=== PATIENT | female | born 1940 | race Caucasian/White ===

== ENCOUNTER 2017-03-10 10:15 | Day surgery (SDC) | payer MEDICARE ==
[2017-03-09 14:09] VITALS: BMI 26.6
[2017-03-10 12:53] LABS: Hematocrit 40.7 % (36.0-47.0); Mean Platelet Volume 7.1 fL (7.4-10.4); Red Blood Cell (RBC) Count 4.12 mill/uL (4.20-5.40); White Blood Cell (WBC) Count 5.3 thou/uL (4.8-10.8)
[2017-03-10 13:00] LABS: PTT 26.5 SEC (22.9-36.1); Prothrombin Time 13.9 SEC (12.0-14.7)
[2017-03-10 13:04] LABS: Anion Gap 14 mmol/L (10-20); BUN (Urea Nitrogen) 15 mg/dL (9.8-20.1); Calc. Creatinine Clearance 72 mL/min (70-130); Calcium 9.7 mg/dL (7.8-10.44); Carbon Dioxide 26 mmol/L (23-31); Chloride 103 mmol/L (98-107); Estimated GFR-MDRD 70
[2017-03-10] MEDS ORDERED: Sodium Chloride 0.9% 10 ML ONE (13:12)
[2017-03-10] MEDS ORDERED: Thrombin 5000 UNITS/5 ML VIAL ONE ×2 (13:12→15:30)
[2017-03-10] MEDS ORDERED: Bacitracin Zinc Ointment 30 gm TUBE ONE (13:12)
[2017-03-10] MEDS ORDERED: Levofloxacin 500 mg/D5W 100 ml Premix Bag ONE (13:16)
[2017-03-10] MEDS ORDERED: Clindamycin/D5W 900 mg/50 ml Premix Bag ONE (13:16)
[2017-03-10] MEDS ORDERED: Albumin 5% 500 ML ONE (13:21)
[2017-03-10] MEDS ORDERED: Vecuronium 10 MG VIAL ONE ×2 (13:21→13:45)
[2017-03-10] MEDS ORDERED: Phenylephrine 10 MG/NS 250 ML 250 ML ONE (13:21)
[2017-03-10] MEDS ORDERED: Fentanyl 100 MCG/2 ML VIAL ONE ×4 (13:33→16:54)
[2017-03-10] MEDS ORDERED: Ketorolac Tromethamine 30 MG/ML VIAL ONE (13:45)
[2017-03-10] MEDS ORDERED: Glycopyrrolate 0.2 MG/ML 5 ML SYRINGE ONE (13:45)
[2017-03-10] MEDS ORDERED: Ondansetron HCl/PF 4 MG/2 ML Vial ONE (13:45)
[2017-03-10] MEDS ORDERED: Lidocaine 1% PF 5 ML VIAL ONE (13:45)
[2017-03-10] MEDS ORDERED: Propofol 200 MG/20 ML VIAL ONE (13:45)
[2017-03-10] MEDS ORDERED: Dexamethasone 20 MG/5 ML VIAL ONE (13:45)
[2017-03-10] MEDS ORDERED: HYDROmorphone 2 MG/ML VIAL SLOW IVP PRN (15:53)
[2017-03-10] MEDS ORDERED: Ondansetron HCl/PF 4 MG/2 ML Vial IVP PRN (15:53)
[2017-03-10] MEDS ORDERED: Promethazine HCl 25 MG/ML VIAL SLOW IVP PRN (15:53)
[2017-03-10] MEDS ORDERED: traMADol HCl 50 MG TAB PO PRN (16:11)
[2017-03-10] MEDS ORDERED: Promethazine HCl 25 MG/ML VIAL IM PRN (16:11)
[2017-03-10] MEDS ORDERED: Fleet Enema 133 ML BOT PR PRN (16:11)
[2017-03-10] MEDS ORDERED: Mag-Al 1200 mg/1200 mg/30 ML UDCUP PO PRN (16:11)
[2017-03-10] MEDS ORDERED: Acetaminophen/Codeine 30-300mg Tablet PO PRN (16:11)
[2017-03-10] MEDS ORDERED: Bisacodyl 10 MG SUPP PR PRN (16:11)
[2017-03-10] MEDS ORDERED: Morphine PF 1 MG/ML SYR IVP PRN (16:11)
[2017-03-10] MEDS ORDERED: Milk Of Magnesia 30 ML UDCUP PO PRN (16:11)
[2017-03-10] MEDS ORDERED: Acetaminophen 325 MG TAB PO PRN (16:11)
[2017-03-10] MEDS ORDERED: chlordiazePOXIDE/Clidinium Bromide Capsule PO PRN (16:13)
[2017-03-10] MEDS ORDERED: Promethazine HCl 25 MG/ML VIAL ONE (16:58)
[2017-03-10] MEDS ORDERED: Non-Formulary Item 1 EACH (Sitagliptin Phos/Metformin Hcl [Janumet] 1 TABLET) PO SCH (17:00)
[2017-03-10] MEDS: metFORMIN 500 MG TAB PO SCH (20:34)
[2017-03-10] MEDS: Alogliptin 25 MG TAB PO SCH (20:34)
[2017-03-10] MEDS: HYDROcodone/Acetaminophen 7.5/325 mg Tablet PO PRN (20:44)
[2017-03-10] MEDS: tiZANidine HCl 4 MG TAB PO PRN (20:44)
[2017-03-10] MEDS: Gabapentin 300 MG CAP PO SCH (20:44)
[2017-03-10] MEDS: Sodium Chloride 0.9% 1,000 ML IV SCH (20:44)
[2017-03-10] MEDS: Clindamycin/D5W 900 MG in Premix Bag 1 BAG IVPB SCH (20:45)
[2017-03-10] MEDS ORDERED: PITAVASTATIN CALCIUM PO SCH (21:00)
[2017-03-10] MEDS ORDERED: Melatonin 3 MG TAB PO SCH (21:00)
[2017-03-10] MEDS ORDERED: (Icosapent Ethyl [Vascepa] 1 GM) PO SCH (21:00)
[2017-03-10] MEDS ORDERED: (Turmeric Root Extract [Turmeric] 500 MG) PO SCH (21:00)
[2017-03-10] MEDS ORDERED: Folic Acid 1 MG TAB PO SCH (21:00)
[2017-03-10] MEDS ORDERED: Ascorbic Acid 500 mg Chewable Tablet PO SCH (21:00)
[2017-03-10] MEDS ORDERED: Bisoprolol Fumarate 5 MG TAB PO SCH (21:00)
[2017-03-11] MEDS: tiZANidine HCl 4 MG TAB PO PRN (03:40)
[2017-03-11] MEDS: HYDROcodone/Acetaminophen 7.5/325 mg Tablet PO PRN ×3 (03:41→13:17)
[2017-03-11] MEDS: Clindamycin/D5W 900 MG in Premix Bag 1 BAG IVPB SCH (05:39)
[2017-03-11] MEDS: Sodium Chloride 0.9% 1,000 ML IV SCH (05:42)
[2017-03-11] MEDS: metFORMIN 500 MG TAB PO SCH (08:34)
[2017-03-11] MEDS: Alogliptin 25 MG TAB PO SCH (08:35)
[2017-03-11] MEDS: Gabapentin 300 MG CAP PO SCH (08:35)
[2017-03-11] MEDS ORDERED: Calcium Carbonate 600 MG TAB PO SCH (09:00)
[2017-03-11] MEDS ORDERED: Ezetimibe 10 MG TAB PO SCH (09:00)
[2017-03-11] MEDS ORDERED: CRANBERRY EXTRACT 200 MG PO SCH (09:00)
[2017-03-11] MEDS ORDERED: Ubidecarenone 50 MG CAP PO SCH (09:00)
[2017-03-11] MEDS ORDERED: Lactinex Tablet PO SCH (09:00)
[2017-03-11] MEDS ORDERED: Losartan Potassium 25 MG TAB PO SCH (09:00)
[2017-03-11] MEDS ORDERED: (Biotin [Biotin] 5,000 MCG) PO SCH (09:00)
[2017-03-11] MEDS ORDERED: Magnesium Oxide 250 MG TAB PO SCH (09:00)
[2017-03-11] MEDS ORDERED: Cyanocobalamin (Vitamin B-12) 1,000 MCG TAB PO SCH (09:00)
[2017-03-11 12:45] VITALS: BP 110/66; TEMP 98.3
--- NOTE | 2017-03-11 19:12 | PRG ---
DATE OF SERVICE: 03/11/2017 Ms. Wilder is doing well postoperative lumbar decompression. She states her leg pain has resolved, which she had before surgery, this is excellent news. As expected, she has pain in the perioperativ e region. We went over intraoperative and postoperative issues, her exam demonstrates good strength and I let her know that we will plan to dismiss her today with followup already arranged.
--- NOTE | 2017-03-14 08:05 | OP ---
DATE OF PROCEDURE: 03/10/2017 SURGEON: Francisco Toledo M.D. OVERHEAD CRANE TECHNICIAN: Aníbal Omalley PA-C. PREPROCEDURE DIAGNOSES: Low back and leg pain with lumbar stenosis. POSTPROCEDURE DIAGNOSES: Low back and leg pain with lumbar stenosis. PROCEDURE: L2-L3, L3-L4 laminectomies, partial facetectomies, foraminotomies over the L2, L3, L4 ner ve roots. DESCRIPTION OF PROCEDURE: After informed consent was obtained from the patient, the patient brought to OR. Proper patient pause and identification was carried out. The wound was drawn out over the do rsal spines of L2, L3 and L4. This region was sterilely cleansed, prepared, and draped. Proper lazarus ent pause and identification was carried out. The wound was then opened with a combination of sharp, monopolar and blunt dissection. The L2, L3, and L4 dorsal spines and lamina were exposed. Localiza tion film confirmed our area of interest. We then performed L2, L3, and L4 laminectomies, partial fa cetectomies, foraminotomies over the nerve roots. We satisfied with our decompression. Copious irri gation occurred throughout. Hemostasis was maximized. The wound was then closed in anatomic layers following the sprinkling of vancomycin powder. The patient then emerged from anesthesia.
== END 2017-03-11 14:42 | disposition home or self-care (01) ==
LOC: SDC 10:15 → SURG A 17:27 → SDC 03-11 14:42
PROVIDERS: ATTEND Surgery
PROC: 00NY0ZZ Release Lumbar Spinal Cord, Open Approach (ICD-10-PCS; principal; 2017-03-10)
DX: M48.061 Spinal stenosis, lumbar region without neurogenic claudication (principal); M54.16 Radiculopathy, lumbar region; Z91.041 Radiographic dye allergy status; Z91.013 Allergy to seafood; Z88.8 Allergy status to other drugs, medicaments and biological substances; Z88.0 Allergy status to penicillin
CPT/HCPCS: 63047; 63048 ×2; 76001; 80048; 85027; 85610; 85730; 93005; 96374; P9045; 36415; 93010; A4216; J1100; J1885; J1956; J2001; J2405; J2550; J2704; J3010; J3370; J3490

== ENCOUNTER 2017-07-20 12:43 | Inpatient (IN) | payer MEDICARE ==
[2017-07-20] MEDS ORDERED: Esmolol 2,500 MG/250 ML 250 ML IVPB SCH (13:30)
[2017-07-20 15:24] LABS: Troponin I Less than 0.010 ng/mL (< 0.028)
[2017-07-20 16:42] VITALS: BMI 23.1
[2017-07-20] MEDS ORDERED: Acetaminophen 325 MG TAB PO PRN (16:44)
[2017-07-20] MEDS ORDERED: Ondansetron ODT 4 MG TAB SL PRN ×2 (16:44→17:02)
[2017-07-20] MEDS ORDERED: Ondansetron HCl/PF 4 MG/2 ML Vial IVP PRN ×2 (16:44→17:02)
--- NOTE | 2017-07-20 17:12 | PDOC.FPRHP ---
- History of Present Illness Chief Complaint: dizziness, SOB History of Present Illness: 77 yo F with PMH HTN, HLD, and one episode A. fib 10 yrs ago sent to ED in [place] from PCP office due to A. fib with RVR by EKG. C/o SOB, dizziness, and mild nausea for 3-4 days. Also c/o one episode of diarrhea last night that has resolved. HR 140s at PCP office and confirmed A. fib on EKG. In outside ED, given IV metoprolol 2.5 mg x6 and IV diltiazem 10 mg x1 which did not affect HR. Transferred to [facility]. Pt's epitaxial reactor operator is Dr. Cruz. Last saw in December. Denies other symptoms. Pt has hx of one episode of atrial fibrillation 10 yrs ago that self-resolved and has not recurred to pt's knowledge. PCP: GRETCH[facility] - Deepika Elkins Code status: Full ED Course: In outside ED, given IV metoprolol 2.5 mg x6 and IV diltiazem 10 mg x1, NS 1.5 L , ASA, lovenox 80 mg (at 1100) - Allergies/Adverse Reactions Allergies Allergy/AdvReac Type Severity Reaction Status Date / Time indomethacin [From Indocin] Allergy Verified 03/09/17 14:10 Iodine and Iodide Containing Allergy Verified 03/09/17 14:10 Produc Penicillins Allergy Verified 03/09/17 14:10 shellfish derived Allergy Verified 03/09/17 14:10 [id number]-Afa Reductase Allergy Verified 03/09/17 14:10 Inhibitor - Home Medications Medication Instructions Recorded Confirmed Type Ascorbate Calcium [Vitamin C] 500 mg PO QPM 03/09/17 07/20/17 History Aspirin [Ecotrin] 81 mg PO DAILY 03/09/17 07/20/17 History Biotin 5,000 mcg PO QAM 03/09/17 07/20/17 History Bisoprolol Fumarate [Bisoprolol 5 mg PO QPM 03/09/17 07/20/17 History Fumarate] Calcium Carbonate [Calcium] 600 mg PO QAM 03/09/17 07/20/17 History Cholecalciferol (Vitamin D3) 5,000 unit PO QAM 03/09/17 07/20/17 History [Vitamin D3] Cranberry Fruit Extract [Ellura] 200 mg PO QAM 03/09/17 07/20/17 History Cyanocobalamin (Vitamin B-12) 2,500 mcg SQ Q14D 03/09/17 07/20/17 History [Vitamin B12] Dexlansoprazole [Dexilant] 60 mg PO QAM 03/09/17 07/20/17 History Ezetimibe [Ezetimibe] 10 mg PO QAM 03/09/17 07/20/17 History Folic Acid 0.4 mg PO QPM 03/09/17 07/20/17 History Gabapentin [Gabapentin] 600 mg PO BID 03/09/17 07/20/17 History Icosapent Ethyl [Vascepa] 1 gm PO BID 03/09/17 07/20/17 History Lactobacillus Acidophilus 1 cap PO QAM 03/09/17 07/20/17 History [Acidophilus] Losartan Potassium 100 mg PO QAM 03/09/17 07/20/17 History Magnesium Oxide [Magnesium] 500 mg PO QAM 03/09/17 07/20/17 History Melatonin 10 mg PO HS 03/09/17 07/20/17 History Meloxicam [Meloxicam] 15 mg PO QAM 03/09/17 07/20/17 History Mirabegron [Myrbetriq] 50 mg PO QAM 03/09/17 07/20/17 History Turmeric Root Extract [Turmeric] 500 mg PO QPM 03/09/17 07/20/17 History Ubidecarenone/Vitamin E Mixed 1 each PO QAM 03/09/17 07/20/17 History [Fiq45-Pao E 100 mg-10 Unit Sfg] sitaGLIPtin Phos/metFORMIN HCl 1 tablet PO BID-WM 03/09/17 07/20/17 History [Janumet] traMADol HCl [Tramadol HCl] 1 - 2 tab PO Q8H PRN 03/09/17 07/20/17 History - History PMHx: HTN, DM2, HLD, A fib x1 episode (10 yrs ago), OA, diverticulosis PSHx: tonsillectomy, appendectomy, hysterectomy, bilateral oophorectomy, R hip replacement '07, laminectomy L2-L4 (Feb) FHx: noncontributory Social: Denies tobacco use. Drinks 1 glass wine nightly. No illicit drug use. - Review of Systems General: denies: fever/chills, weight/appetite/sleep changes Eyes: denies: eye pain, vision changes ENT: denies: nasal congestion, rhinorrhea Respiratory: reports: shortness of breath. denies: cough, congestion Cardiovascular: reports: palpitation. denies: chest pain, edema Gastrointestinal: reports: nausea, diarrhea. denies: vomiting, constipation Genitourinary: denies: incontinence, dysuria Skin: denies: rashes, lesions Musculoskeletal: denies: pain, tenderness Neurological: denies: numbness, syncope Psychological: denies: anxiety, depression - Vital signs BP: 131/88 HR: 128 RR: 16 Tmax: 98.4 Pox: 97% on 2L Wt: 69kg - Physical Exam Constitutional: NAD, awake, alert and oriented HEENT: PERRLA, EOMI, MMM, oropharynx clear, other (nasal cannula in place) Neck: supple, FROM, no bruits Heart: no murmurs/rubs/gallops, pulses present, other (irregularly irregular rhythm, trace pedal edema) Lungs: CTAB, no respiratory distress, good air movement Abdomen: soft, non-tender, bowel sounds present, no masses/distention Musculoskeletal: normal structure, normal tone, ROM grossly normal Neurological: no focal deficit, CN II-XII intact Skin: no rash/lesions, good turgor Psychiatric: normal mood and affect, good judgment and insight FMR H&P: Results - Labs Lab results: Collected 07/20 in [place]: CBC: WBC 7.6, Hgb 12.9, Hct 38.3, Plt 271 CMP Na 138, K 5.0, Cl 103, CO2 22, BUN 26, Cr 1.28, Ca 9.8, Tot Pr 7.3, Alb 4.4 , AST 15, ALT 16, Alk phos 66, T bili 0.4 BNP 700 Trop <0.01 x2 Mg 2.2 INR 1.1 TSH 2.69 - EKG Interpretation EKG: atrial fibrillation with RVR, rate 132 - Radiology Interpretation Chest x-ray Status: report reviewed by me Additional comment: Done in [place]; no acute findings. FMR H&P: A/P - Problem List (1) Atrial fibrillation with rapid ventricular response Current Visit: Yes Status: Acute Code(s): I48.91 - UNSPECIFIED ATRIAL FIBRILLATION Assessment and Plan: Esmolol drip started in ED and titrated to 200 mcg/kg/hr. No bolus dose given. Did not respond to IV metoprolol in outside ED. Admitting to CCU for monitoring and titration. Dr. Olson of [facility] consulted. NPO at midnight per cards. Hold oral bisoprolol. If further rate control needed, likely add amiodarone. Pt is less symptomatic currently but still in RVR. Started lovenox anticoagulation. Can discuss further with [facility] about predatory animal exterminator goals, cardiac evaluation, or cardioversion. Appreciate their assistance. Dr. Cruz is her primary epitaxial reactor operator. (2) Hypertension Current Visit: Yes Status: Acute Code(s): I10 - ESSENTIAL (PRIMARY) HYPERTENSION Qualifiers: Hypertension type: essential hypertension Qualified Code(s): I10 - Essential (primary) hypertension Assessment and Plan: Continue losartan. Likely to add other agents that may cause hypotension due to new-onset A fib. (3) Diabetes type 2, controlled Current Visit: Yes Status: Acute Code(s): E11.9 - TYPE 2 DIABETES MELLITUS WITHOUT COMPLICATIONS Assessment and Plan: Hold metformin in case contrast is required. Accuchecks/SSI. Monitor. (4) Hyperlipidemia Current Visit: Yes Status: Acute Code(s): E78.5 - HYPERLIPIDEMIA, UNSPECIFIED Assessment and Plan: Home meds. Unable to tolerate statins. (5) Osteoarthritis Current Visit: Yes Status: Acute Code(s): M19.90 - UNSPECIFIED OSTEOARTHRITIS, UNSPECIFIED SITE Assessment and Plan: Home meds. Hold NSAIDs during current cardiac eval - Plan Disposition/LOS: Admit to CCU for expected 2 day stay. Attending Addendum - Attending Addendum Date/Time: 07/20/172115 I personally evaluated the patient and discussed the management with Dr. Adam. I agree with and repeated the History, Examination, Assessment and Plan documented above with any addition or exceptions noted below. Rate control, anticoagulation, cardiology consultation.
[2017-07-20] MEDS: Esmolol 2,500 MG/250 ML 250 ML IVPB SCH ×3 (17:38→22:30)
[2017-07-20 18:11] LABS: Troponin I Less than 0.010 ng/mL (< 0.028)
[2017-07-20] MEDS ORDERED: Dextrose 5% in Water 1,000 ML IV PRN (18:51)
[2017-07-20] MEDS ORDERED: HumaLOG 300 UNITS/3 ML VIAL SC PRN ×2 (18:51)
[2017-07-20] MEDS ORDERED: Dextrose 50% Abboject 50 ML SYRINGE SLOW IVP PRN (18:51)
[2017-07-20] MEDS ORDERED: Melatonin 3 MG TAB PO PRN (18:58)
[2017-07-20] MEDS: Gabapentin 300 MG CAP PO SCH (20:46)
[2017-07-20] MEDS: Enoxaparin Sodium 80 MG/0.8 ML SYRINGE SC SCH (20:47)
[2017-07-20] MEDS ORDERED: FLU VACC TS2017-18 (>65YR) 0.5 ML SYRINGE IM ONE (21:00)
--- NOTE | 2017-07-20 23:30 | CON ---
DATE OF CONSULTATION: 07/20/2017 REASON FOR CONSULTATION: Atrial fibrillation with a rapid rate. PRIMARY MECHANICAL ENGINEERING INTERN: Naren Cruz M.D. HISTORY OF PRESENT ILLNESS: Ms. Wilder is a very pleasant 77-year-old woman. The patient states s he had atrial fibrillation about 10 years ago. She was sent over here, but by the time she got here, she is in sinus rhythm. The patient has been made seen and treated for hypertension and history of atrial fibrillation that is why Dr. Cruz has been seeing her, but the patient has done well. She also has hypercholesterolemia. She has done very well up until today. She went to see her doctor a nd she complained of some dizziness. She was found to be in atrial fibrillation with a rapid rate an d sent to the emergency room. MEDICATIONS: 1. Tramadol. 2. Losartan. 3. Folic acid. 4. Zetia. 5. Bisoprolol 5 mg a day. 6. Aspirin. ALLERGIES: INDOMETHACIN, IODINE, and IODINE-CONTAINING PRODUCTS and PENICILLIN. REVIEW OF SYSTEMS: Constitutional: No significant weight gain or loss. Vision: No changes. Heari ng: No changes. Pulmonary: No cough or wheezing. Gastrointestinal: No nausea, vomiting, diarrhea . Skin: No rashes. Neurologic: No unilateral weakness or numbness. Psychiatric: No unusual depr ession or anxiety. Hematologic: No unusual bruising. Genitourinary: No burning with urination. PHYSICAL EXAMINATION: GENERAL: This is a pleasant woman, looks younger than her chronologic age. VITAL SIGNS: Blood pressure 111/74; pulse 120s, and irregular, it is atrial fibrillation. HEENT: Sclerae nonicteric. Mouth mucous membranes moist. NECK: Supple, no lymphadenopathy. LUNGS: Clear. CARDIAC: Irregularly irregular. She is tachycardic. I do not hear a murmur, rub, or gallop. ABDOMEN: Soft and nontender. EXTREMITIES: No clubbing or cyanosis. There is no edema. SKIN: Warm and dry. LABORATORY AND X-RAY FINDINGS: EKG reveals atrial fibrillation with a rapid rate. Troponin level wa s less than 0.010. ASSESSMENT: 1. Atrial fibrillation with a rapid rate. She is on esmolol with only fair improvement in her heart rate. 2. She is allergic to IODINE. 3. Hypercholesterolemia. 4. Hypertension. PLAN: 1. Continue esmolol. 2. Add oral Cardizem. Intravenous Cardizem is not available at the present time due to shortage. 3. We would recommend transesophageal echo and cardioversion tomorrow with Dr. Cruz. Keep her n .p.o. after midnight.
[2017-07-21] MEDS: Esmolol 2,500 MG/250 ML 250 ML IVPB SCH ×5 (00:58→11:32)
--- NOTE | 2017-07-21 04:06 | CON ---
DATE OF CONSULTATION: 07/20/2017 HISTORY OF PRESENT ILLNESS: Ms. Wilder is a pleasant 77-year-old female. She has had atrial fibri llation in the past and has been followed by Dr. Cruz in the past, I believe. Apparently, she has been feeling lightheaded for several days. She was seen in the emergency room in [facility] after Dr. Guillaume noted that she was in atrial fib in the office. She subsequently has been transferred here. She was admitted to the ICU on an esmolol drip. There is shortage nationall [place] Cardizem, so this was a drug that was chosen. She denies any shortness of breath or chest pain. PAST MEDICAL HISTORY: This obtained from the patient and all records have been reviewed in 02/2017, she had an L2-L3, L3-L4 laminectomy, partial facetectomies, foraminotomies over L2, L3, and L4 nerve roots. She apparently did well with this. PAST MEDICAL HISTORY: Also remarkable for; 1. Hypertension. 2. Diabetes. 3. Diverticulosis. 4. Degenerative arthritis. 5. History of tonsillectomy. 6. History of an appendectomy. 7. Status post hysterectomy and oophorectomy. 8. History of a hip replacement in 2006. FAMILY HISTORY: Negative for lung disease in early age. SOCIAL HISTORY: She does not smoke. She drinks one glass of wine in the evening. She does not use drugs. MEDICATIONS: Have been reviewed. She is on multiple over the counter medicines and also on Dexilant , ezetimibe, gabapentin, Vascepa, losartan, loxapine, Myrbetriq, and tramadol. REVIEW OF SYSTEMS: Ten-point review of systems otherwise negative. PHYSICAL EXAMINATION: GENERAL: Atrial fibrillation, rate was 120 when she arrived in the unit. VITAL SIGNS: Her blood pressure was in the 90s to low 100s. She is afebrile. Respiratory rates in the teens. Oximetry 97%. HEENT: Pupils are equal. Sclerae is anicteric. NECK: Supple. No lymphadenopathy. LUNGS: Clear. HEART: Regular rhythm. S1 and S2 are normal. I do not hear a gallop. ABDOMEN: Soft and nontender. EXTREMITIES: Without clubbing, cyanosis, or edema. NEUROLOGIC: Nonfocal. LABORATORY DATA: White count is 5.5, hemoglobin 12.2, platelets 257. Sodium 139, creatinine 4.6, ch loride 103, bicarb 26, BUN 15, creatinine 0.8, glucose 119. IMPRESSION: Atrial fibrillation with rapid ventricular response, improving on current therapy. Card iology will be consulted. From a pulmonary standpoint, she appears stable. She has a good night. S he can be transferred to a telemetry unit in my opinion. I have discussed the above with Cardiology and call the Cardiology, we will see her in consultation. This is a 50-minutes consult greater than 50% of the time was spent on the unit coordinating care.
[2017-07-21 05:55] LABS: #Basophils 0.1 thou/uL (0.0-0.2); #Eosinphils 0.1 thou/uL (0.0-0.7); #Lymphocytes 2.2 thou/uL (1.20-3.40); #Monocytes 0.6 thou/uL (0.11-0.59); #Neutrophils 2.4 thou/uL (1.40-6.50); %Basophils 1.3 % (0.0-1.0); %Eosinophils 1.8 % (0.0-10.0); %Lymphocytes 40.9 % (21.0-51.0); %Monocytes 10.4 % (0.0-10.0); %Neutrophils 45.6 % (42.0-75.0); Hemoglobin 11.6 g/dL (12.0-16.0); Mean Corpuscular HGB CONC 33.4 g/dL (32.0-36.0); Mean Corpuscular Hemoglobin 31.7 pg (27.0-31.0); Mean Corpuscular Volume 94.8 fl (81.0-99.0); Mean Platelet Volume 7.1 fL (7.4-10.4); Platelet Count 209 thou/uL (130-400); RBC Distribution Width 13.8 % (11.5-14.5); Red Blood Cell (RBC) Count 3.66 mill/uL (4.20-5.40); White Blood Cell (WBC) Count 5.3 thou/uL (4.8-10.8)
[2017-07-21 06:18] LABS: ALT (SGPT) 25 U/L (8-55); AST (SGOT) 28 U/L (5-34); Albumin 3.8 g/dL (3.4-4.8); Alkaline Phosphatase 50 U/L (40-150); Anion Gap 12 mmol/L (10-20); BUN (Urea Nitrogen) 21 mg/dL (9.8-20.1); Bilirubin, Total 0.8 mg/dL (0.2-1.2); Calc. Creatinine Clearance 48 mL/min (70-130); Calcium 9.1 mg/dL (7.8-10.44); Carbon Dioxide 21 mmol/L (23-31); Chloride 104 mmol/L (98-107); Estimated GFR-MDRD 52; Globulin 2.3 g/dL (2.4-3.5); Glucose 134 mg/dL (83-110); Potassium 4.8 mmol/L (3.5-5.1); Protein, Total 6.1 g/dL (6.0-8.3); Sodium 132 mmol/L (136-145)
[2017-07-21] MEDS ORDERED: Aspirin 81 mg Enteric Coated Tablet PO SCH (09:00)
[2017-07-21] MEDS: Gabapentin 300 MG CAP PO SCH ×2 (09:07→20:05)
[2017-07-21] MEDS: Alogliptin 25 MG TAB PO SCH (09:08)
[2017-07-21] MEDS: Ezetimibe 10 MG TAB PO SCH (09:08)
[2017-07-21] MEDS: Losartan 25 MG TAB PO SCH ×2 (09:09)
[2017-07-21] MEDS: Calcium Carbonate 600 MG TAB PO SCH (09:14)
[2017-07-21] MEDS: Enoxaparin Sodium 80 MG/0.8 ML SYRINGE SC SCH (09:15)
--- NOTE | 2017-07-21 11:07 | PDOC.FM ---
- Subjective Subjective: Patient laying in bed with no complaints this morning. She denies lightheadedness, dizziness, SOB, and CP. She has been in a-fib since admission with rates in the 100-120 bpm despite being on maximum infusion of esmolol. - Objective MAR Reviewed: Yes Vital Signs & Weight: Vital Signs (12 hours) Temp 07/21/17 03:00 97.9 F Weight Weight 69.2 kg Most Recent Monitor Data Heart Rate from ECG 118 NIBP 139/80 NIBP BP-Mean 110 Respiration from ECG 15 SpO2 94 I&O: 07/20/17 07/21/17 07/22/17 06:59 06:59 06:59 Intake Total 1409 Output Total 1150 Balance 259 Result Diagrams: 07/21/17 04:35 07/21/17 04:35 <Brown Mae - Last Filed: 07/21/17 11:06> - Objective Vital Signs & Weight: Vital Signs (12 hours) Temp Pulse Ox 07/22/17 04:00 92 L 07/22/17 03:00 97.7 F 07/21/17 23:00 98.3 F Weight Weight 69.2 kg Most Recent Monitor Data Heart Rate from ECG 87 NIBP 140/64 NIBP BP-Mean 102 Respiration from ECG 16 SpO2 95 I&O: 07/21/17 07/22/17 07/23/17 06:59 06:59 06:59 Intake Total 1409 1194 Output Total 1150 1475 550 Balance 259 -281 -550 Result Diagrams: 07/22/17 04:06 07/22/17 04:06 <Kenneth Artis - Last Filed: 07/22/17 07:53> Phys Exam - Physical Examination Constitutional: NAD HEENT: moist MMs Neck: no JVD Respiratory: no wheezing, no rales irregularly irregualr rhythym Gastrointestinal: soft, non-tender Musculoskeletal: no edema Neurological: moves all 4 limbs Psychiatric: normal affect, A&O x 3 <Brown Mae - Last Filed: 07/21/17 11:06> Dx/Plan (1) Atrial fibrillation with rapid ventricular response Code(s): I48.91 - UNSPECIFIED ATRIAL FIBRILLATION Status: Acute Plan: s/p IV metoprolol x 6 and IV diltiazem x 1 at outside facility Cardiology managing -continue Esmolol gtt and PO dilt BATSHEVA scheduled for today with cardioversion to follow On therapeutic lovenox (2) Diabetes type 2, controlled Code(s): E11.9 - TYPE 2 DIABETES MELLITUS WITHOUT COMPLICATIONS Status: Chronic Plan: Accuchecks SSI (3) Hyperlipidemia Code(s): E78.5 - HYPERLIPIDEMIA, UNSPECIFIED Status: Chronic Plan: allergic to statins continue home meds (4) Hypertension Code(s): I10 - ESSENTIAL (PRIMARY) HYPERTENSION Status: Acute QualifierTitle: Hypertension type: essential hypertension Qualified Code( s): I10 - Essential (primary) hypertension Plan: Continue home losartan (5) Osteoarthritis Code(s): M19.90 - UNSPECIFIED OSTEOARTHRITIS, UNSPECIFIED SITE Status: Acute Plan: Continue home meds - Plan Plan: -await results of BATSHEVA with likely cardioversion to follow <Brown Mae - Last Filed: 07/21/17 11:06> Attending Addendum - Attending Addendum Date/Time: 07/22/17 0752 I personally evaluated the patient and discussed the management with Dr. Mae on 07/21/17. I agree with the History, Examination, Assessment and Plan documented above with any addition or exceptions noted below. <Kenneth Artis - Last Filed: 07/22/17 07:53>
[2017-07-21] MEDS ORDERED: Ketamine 50 MG/ML VIAL ONE (12:04)
--- NOTE | 2017-07-21 15:42 | ECHO ---
TRANSESOPHAGEAL ECHOCARDIOGRAM: DATE OF PROCEDURE: 07/21/17 INDICATION: This is a 77-year-old woman with paroxysmal atrial fibrillation. DESCRIPTION OF PROCEDURE: The patient was taken to the PACU. The patient was sedated by anesthesiology. A transesophageal probe was placed in the distal esophagus and stomach. Echocardiographic images were obtained. The transesophageal probe was removed. FINDINGS: 1. Left atrial enlargement. 2. Left ventricle does not appear to be dilated. 3. Mild mitral regurgitation. 4. Mild tricuspid regurgitation. 5. No thrombus in left atrial appendage. 6. Atherosclerotic debris in the descending aorta. IMPRESSION: No formed thrombus in left atrial appendage.
--- NOTE | 2017-07-21 18:31 | OP ---
PROCEDURE PERFORMED: Electrocardiogram. INDICATION: This is a 77-year-old woman with paroxysmal atrial fibrillation. DESCRIPTION OF PROCEDURE: The patient in the ICU was sedated by Anesthesiology. The patient was lance cked with 120 joules of synchronized electricity. The patient converted to normal sinus rhythm. IMPRESSION: Successful electrocardioversion.
--- NOTE | 2017-07-21 18:42 | PRG ---
DATE OF SERVICE: 07/21/2017 SUBJECTIVE: Ms. Wilder says she is feeling fine. She still has atrial fibrillation with a rate of around 110-120. The plan for today was to take her down to a transesophageal echo and hopefully cardiovert her. OBJECTIVE: VITAL SIGNS: She is afebrile, heart rates in the 60s and blood pressure 119/64. LUNGS: Clear. HEART: Irregular. ABDOMEN: Soft. LABORATORY DATA: White count was 5.3, hemoglobin 11.6, and platelets 209,000. Sodium 132, potassium 4.8, chloride 104, bicarbonate 21, BUN 21, creatinine 1.03. IMPRESSION AND PLAN: Rapid atrial fibrillation recurrence. She has been out of atrial fibrillation what she tells me for 10 years. Hopefully, she will successfully be cardioverted.
[2017-07-21] MEDS: Apixaban 5 MG TAB PO SCH (20:05)
[2017-07-21] MEDS: Flecainide 50 MG TAB PO SCH ×2 (20:05)
[2017-07-22 04:13] LABS: #Basophils 0.1 thou/uL (0.0-0.2); #Eosinphils 0.1 thou/uL (0.0-0.7); #Lymphocytes 1.9 thou/uL (1.20-3.40); #Monocytes 0.8 thou/uL (0.11-0.59); #Neutrophils 6.9 thou/uL (1.40-6.50); %Basophils 0.7 % (0.0-1.0); %Eosinophils 0.7 % (0.0-10.0); %Lymphocytes 19.7 % (21.0-51.0); %Monocytes 8.1 % (0.0-10.0); %Neutrophils 70.9 % (42.0-75.0); Hemoglobin 11.6 g/dL (12.0-16.0); Mean Corpuscular HGB CONC 33.7 g/dL (32.0-36.0); Mean Corpuscular Hemoglobin 31.4 pg (27.0-31.0); Mean Corpuscular Volume 93.3 fl (81.0-99.0); Mean Platelet Volume 6.2 fL (7.4-10.4); Platelet Count 212 thou/uL (130-400); RBC Distribution Width 13.6 % (11.5-14.5); Red Blood Cell (RBC) Count 3.68 mill/uL (4.20-5.40); White Blood Cell (WBC) Count 9.8 thou/uL (4.8-10.8)
[2017-07-22 05:02] LABS: ALT (SGPT) 26 U/L (8-55); AST (SGOT) 23 U/L (5-34); Albumin 4.2 g/dL (3.4-4.8); Alkaline Phosphatase 54 U/L (40-150); Anion Gap 14 mmol/L (10-20); BUN (Urea Nitrogen) 13 mg/dL (9.8-20.1); Bilirubin, Total 0.5 mg/dL (0.2-1.2); Calc. Creatinine Clearance 49 mL/min (70-130); Calcium 9.3 mg/dL (7.8-10.44); Carbon Dioxide 24 mmol/L (23-31); Chloride 107 mmol/L (98-107); Estimated GFR-MDRD 52; Globulin 2.4 g/dL (2.4-3.5); Glucose 136 mg/dL (83-110); Potassium 3.9 mmol/L (3.5-5.1); Protein, Total 6.6 g/dL (6.0-8.3); Sodium 141 mmol/L (136-145)
[2017-07-22] MEDS: Alogliptin 25 MG TAB PO SCH (08:00)
[2017-07-22] MEDS: Losartan 25 MG TAB PO SCH ×2 (08:01)
[2017-07-22] MEDS: Ezetimibe 10 MG TAB PO SCH (08:02)
[2017-07-22] MEDS: Gabapentin 300 MG CAP PO SCH ×2 (08:02→21:20)
[2017-07-22] MEDS: Calcium Carbonate 600 MG TAB PO SCH (08:02)
[2017-07-22] MEDS: Apixaban 5 MG TAB PO SCH ×2 (08:03→21:21)
[2017-07-22] MEDS: Flecainide 50 MG TAB PO SCH ×4 (08:04→21:20)
[2017-07-22] MEDS ORDERED: Bisoprolol Fumarate 5 MG TAB PO SCH (09:00)
--- NOTE | 2017-07-22 10:39 | PRG ---
DATE OF SERVICE: 07/22/2017 SERVICE: Pulmonary Medicine INTERVAL HISTORY: The patient is doing absolutely fantastic from a cardiovascular and respiratory st andpoint. She denies any current fevers, chills, nausea, vomiting. She is in normal sinus rhythm. She has no dizziness, shortness of breath or chest pain. PHYSICAL EXAMINATION: VITAL SIGNS: Afebrile, pulse 90, blood pressure 133/69, respirations 18, saturation 99% on room air. GENERAL: The patient is awake, alert, no apparent distress. LUNGS: Excellent air entry with no prolonged expiratory phase, wheezing, rhonchi or crackles. HEART: Normal rate, regular. ABDOMEN: Soft, nontender, nondistended. Bowel sounds positive. MUSCULOSKELETAL: No cyanosis or clubbing. No pitting in the bilateral lower extremities. NEUROLOGIC: Grossly nonfocal. LABORATORY DATA: WBC 9.8, hemoglobin 11.6, platelets 212,000. Basic metabolic profile and liver fun ction studies are completely unremarkable. Creatinine is stable at 1.01. ASSESSMENT: Atrial fibrillation with rapid ventricular response, status post cardioversion. PLAN: The patient has returned to normal sinus rhythm once again. She has maintained that rhythm fo r the time being. She can be transitioned to the telemetry unit, or discharged home if Cardiology i s okay with it. Either way, she has no further requirements for critical care monitoring. Pulmonary will continue to follow intermittently during this hospital stay in the floor setting.
[2017-07-22] MEDS: traMADol HCl 50 MG TAB PO PRN ×2 (10:51→21:19)
--- NOTE | 2017-07-22 10:54 | PDOC.FM ---
- Subjective Subjective: Patient doing very well since cardioversion yesterday. She has been in normal sinus rhythm with rate 60-90 bpm. No acute events per nursing. Patient denies chest pain, palpitations, n/v/d, and SOB. She is requesting to go home. - Objective MAR Reviewed: Yes Vital Signs & Weight: Vital Signs (12 hours) Temp Pulse Resp Pulse Ox 07/22/17 08:00 98.6 F 90 24 H 100 07/22/17 04:00 92 L 07/22/17 03:00 97.7 F 07/21/17 23:00 98.3 F Weight Weight 69.2 kg Most Recent Monitor Data Heart Rate from ECG 98 NIBP 133/69 NIBP BP-Mean 82 Respiration from ECG 18 SpO2 99 I&O: 07/21/17 07/22/17 07/23/17 06:59 06:59 06:59 Intake Total 1409 1194 300 Output Total 1150 1475 550 Balance 259 -281 -250 Result Diagrams: 07/22/17 04:06 07/22/17 04:06 EKG Reviewed by me: Yes (NSR) <Brown Mae - Last Filed: 07/22/17 10:52> - Objective Vital Signs & Weight: Weight Weight 69.2 kg Most Recent Monitor Data Heart Rate from ECG 76 NIBP 134/68 NIBP BP-Mean 87 Respiration from ECG 18 SpO2 99 I&O: 07/23/17 07/24/17 07/25/17 06:59 06:59 06:59 Intake Total 1170 Output Total 1350 Balance -180 Result Diagrams: 07/22/17 04:06 07/22/17 04:06 <Kenneth Artis - Last Filed: 07/24/17 19:15> Phys Exam - Physical Examination Constitutional: NAD HEENT: moist MMs Neck: no JVD Respiratory: no wheezing, no rales Cardiovascular: RRR, no significant murmur Gastrointestinal: soft, non-tender Musculoskeletal: no edema, pulses present Neurological: moves all 4 limbs Psychiatric: normal affect, A&O x 3 Skin: no rash <Brown Mae - Last Filed: 07/22/17 10:52> Dx/Plan (1) Atrial fibrillation with rapid ventricular response Code(s): I48.91 - UNSPECIFIED ATRIAL FIBRILLATION Status: Acute Plan: TTE showed no thrombus Successful cardioversion with normal rate and rhythm s/p Continue to monitor (2) Diabetes type 2, controlled Code(s): E11.9 - TYPE 2 DIABETES MELLITUS WITHOUT COMPLICATIONS Status: Chronic Plan: Accuchecks SSI (3) Hyperlipidemia Code(s): E78.5 - HYPERLIPIDEMIA, UNSPECIFIED Status: Chronic Plan: allergic to statins continue home meds (4) Hypertension Code(s): I10 - ESSENTIAL (PRIMARY) HYPERTENSION Status: Acute QualifierTitle: Hypertension type: essential hypertension Qualified Code( s): I10 - Essential (primary) hypertension Plan: Continue home losartan (5) Osteoarthritis Code(s): M19.90 - UNSPECIFIED OSTEOARTHRITIS, UNSPECIFIED SITE Status: Acute Plan: Continue home meds - Plan Plan: -continue to monitor -possible d/c today <Brown Mae C - Last Filed: 07/22/17 10:52> Attending Addendum - Attending Addendum Date/Time: 07/24/17 1915 I personally evaluated the patient and discussed the management with Dr. Mae on 07/22/17. I agree with the History, Examination, Assessment and Plan documented above with any addition or exceptions noted below. <Kenneth Artis - Last Filed: 07/24/17 19:15>
[2017-07-22] MEDS: Acetaminophen 325 MG TAB PO PRN ×2 (11:57→18:06)
[2017-07-22] MEDS: Bisoprolol Fumarate 5 MG TAB PO SCH (21:21)
[2017-07-23] MEDS: Acetaminophen 325 MG TAB PO PRN ×2 (01:01→08:31)
--- NOTE | 2017-07-23 07:17 | PDOC.FM ---
- Subjective Subjective: Patient sitting up in bed ready to go home this morning. She is c/o generalized headache but denies CP, SOB, palpitations, PUGH. - Objective MAR Reviewed: Yes Vital Signs & Weight: Vital Signs (12 hours) Temp Pulse Resp Pulse Ox 07/23/17 05:19 92 L 07/22/17 21:20 98.2 F 79 17 92 L Weight Weight 69.2 kg Most Recent Monitor Data Heart Rate from ECG 76 NIBP 134/68 NIBP BP-Mean 87 Respiration from ECG 18 SpO2 99 I&O: 07/22/17 07/23/17 07/24/17 06:59 06:59 06:59 Intake Total 1194 1170 Output Total 1475 1350 Balance -281 -180 Result Diagrams: 07/22/17 04:06 07/22/17 04:06 <Brown Mae C - Last Filed: 07/23/17 07:16> - Objective Vital Signs & Weight: Vital Signs (12 hours) Temp Pulse Resp BP Pulse Ox 07/23/17 08:00 100.5 F H 85 18 92 L 07/23/17 07:43 100.5 F H 85 18 172/75 H 92 L 07/23/17 05:19 92 L Weight Weight 69.2 kg Most Recent Monitor Data Heart Rate from ECG 76 NIBP 134/68 NIBP BP-Mean 87 Respiration from ECG 18 SpO2 99 I&O: 07/22/17 07/23/17 07/24/17 06:59 06:59 06:59 Intake Total 1194 1170 Output Total 1475 1350 Balance -281 -180 Result Diagrams: 07/22/17 04:06 07/22/17 04:06 <Francisco Christensen - Last Filed: 07/23/17 10:49> Phys Exam - Physical Examination Constitutional: NAD HEENT: moist MMs Neck: no JVD Respiratory: no wheezing, no rales Cardiovascular: RRR, no significant murmur Gastrointestinal: soft, non-tender Musculoskeletal: no edema Neurological: moves all 4 limbs Psychiatric: normal affect, A&O x 3 Skin: no rash <Brown Mae C - Last Filed: 07/23/17 07:16> Dx/Plan (1) Atrial fibrillation with rapid ventricular response Code(s): I48.91 - UNSPECIFIED ATRIAL FIBRILLATION Status: Acute Plan: TTE showed no thrombus Successful cardioversion on 07/21 with normal rate and rhythm s/p Continue to monitor rate controlled likely d/c today (2) Diabetes type 2, controlled Code(s): E11.9 - TYPE 2 DIABETES MELLITUS WITHOUT COMPLICATIONS Status: Chronic Plan: Accuchecks SSI (3) Hyperlipidemia Code(s): E78.5 - HYPERLIPIDEMIA, UNSPECIFIED Status: Chronic Plan: allergic to statins continue home meds (4) Hypertension Code(s): I10 - ESSENTIAL (PRIMARY) HYPERTENSION Status: Acute QualifierTitle: Hypertension type: essential hypertension Qualified Code( s): I10 - Essential (primary) hypertension Plan: Continue home losartan (5) Osteoarthritis Code(s): M19.90 - UNSPECIFIED OSTEOARTHRITIS, UNSPECIFIED SITE Status: Acute Plan: Continue home meds - Plan Plan: Plan: -d/c on eliquis today after 24+ hours of monitoring s/p synchronized cardioversion <Brown Mae C - Last Filed: 07/23/17 07:16> Attending Addendum - Attending Addendum Date/Time: 07/23/17 1048 I personally evaluated the patient and discussed the management with Dr. Mae. I agree with the History, Examination, Assessment and Plan documented above with any addition or exceptions noted below. Patient doing well from CV standpoint and continues in NSR s/p cardioversion. She is without CV or respiratory complaints. She does complain of a mild headache today and had temp of 100.5 this morning. Will question about infection symptoms and obtain labs as necessary. If negative and feeling well, should be well for discharge this afternoon. <Francisco Christensen - Last Filed: 07/23/17 10:49>
[2017-07-23] MEDS: Losartan 25 MG TAB PO SCH ×2 (08:30)
[2017-07-23] MEDS: Bisoprolol Fumarate 5 MG TAB PO SCH (08:30)
[2017-07-23] MEDS: Ezetimibe 10 MG TAB PO SCH (08:30)
[2017-07-23] MEDS: Flecainide 50 MG TAB PO SCH ×2 (08:31)
[2017-07-23] MEDS: Alogliptin 25 MG TAB PO SCH (08:31)
[2017-07-23] MEDS: traMADol HCl 50 MG TAB PO PRN (08:31)
[2017-07-23] MEDS: Gabapentin 300 MG CAP PO SCH (08:31)
[2017-07-23] MEDS: Apixaban 5 MG TAB PO SCH (08:31)
[2017-07-23] MEDS: Calcium Carbonate 600 MG TAB PO SCH (08:31)
[2017-07-23 11:02] VITALS: BP 134/63; TEMP 99.1
--- NOTE | 2017-07-25 12:25 | DIS-2 ---
DATE OF ADMISSION: 07/20/2017 DATE OF DISCHARGE: 07/23/2017 ADMITTING ATTENDING: Samuel Pascual MD DISCHARGE ATTENDING: Francisco Christensen MD CONSULTS: Cardiology. PROCEDURES: 1. Transesophageal echocardiogram showing left atrial enlargement, left mild mitral regurgitation, mild tricuspid regurgitation, no thrombus in the left atrial appendage. 2. Synchronized cardioversion on 07/21/2017 with 120 joules. Successful cardioversion. PRIMARY DIAGNOSIS: New-onset atrial fibrillation with rapid ventricular response. SECONDARY DIAGNOSES: 1. Hypertension. 2. Hyperlipidemia. 3. Diabetes mellitus type 2. 4. Osteoarthritis. 5. Urge incontinence. DISCHARGE MEDICATIONS: 1. Tramadol 50 mg p.o. q.8 hours p.r.n. for pain. 2. Janumet mg p.o. b.i.d. with meals. 3. CoQ10. 4. Myrbetriq 50 mg p.o. q.a.m. 5. Meloxicam 50 mg p.o. q.a.m. 6. Melatonin 10 mg p.o. at bedtime. 7. Magnesium oxide 500 mg p.o. q.a.m. 8. Losartan 100 mg p.o. q.a.m. 9. Lactobacillus acidophilus capsule. 10. Vascepa 1 gram p.o. b.i.d. 11. Gabapentin 600 mg p.o. b.i.d. 12. Folic acid 0.4 mg p.o. q.p.m. 13. Ezetimibe 10 mg p.o. q.a.m. 14. Dexilant 60 mg p.o. q.a.m. 15. Vitamin B12 of 2500 mcg subcutaneously every 14 days. 16. Vitamin D3 of 5000 units p.o. q.a.m. 17. Calcium carbonate 600 mg p.o. q.a.m. 18. Bisoprolol fumarate 5 mg p.o. q.p.m. 19. Biotin 5000 mcg p.o. q.a.m. 20. Aspirin 81 mg p.o. daily. 21. Vitamin C 500 mg p.o. q.p.m. 22. Turmeric root extract 500 mg p.o. q.p.m. 23. Eliquis 5 mg p.o. b.i.d. 24. Flecainide 50 mg p.o. b.i.d. DISCONTINUED MEDICATIONS: 1. Esmolol drip. 2. Diltiazem p.o. HISTORY OF PRESENT ILLNESS/HOSPITAL COURSE: This is a 77-year-old female with a past medical history of hypertension, hyperlipidemia who presented to [facility] ED from PCP's office due to atrial fibrillation with RVR verified by EKG. The patient was complaining of shortness of breath, dizziness, and nausea for 3- 4 days prior to office visit. Patient was given IV metoprolol 2.5 mg x6 and IV diltiazem 10 mg x1, but neither brought the patient under rate control. Therefore, patient was transferred to [facility] ED and Cardiology was consulted. An esmolol drip was started in ED and titrated to 200 mcg per kilogram per hour. Dr. Olson of Cardiology was initially involved in consultation. The patient's oral bisoprolol was held upon admission. The patient was asymptomatic, but still in RVR upon arrival to the CCU. She was started on Lovenox for anticoagulation. Oral Cardizem was added to medication regimen, but this also did not bring the patient under rate control. The patient then underwent transesophageal echocardiogram and cardioversion with Dr. Cruz. Patient was monitored for 36 hours status post cardioversion with no adverse events. Her heart rate was well controlled and she remained in normal sinus rhythm. She will remain on Eliquis and flecainide and to follow up with Cardiology. Patient's chronic medical conditions were well controlled on home medications. DISPOSITION: Stable. DISCHARGE INSTRUCTIONS: 1. Location: Home. 2. Diet: Heart healthy. 3. Activity: As tolerated. 4. Followup: With PCP in [place] in [address] Cruz in 1-2 weeks. [facility]
--- NOTE | 2017-08-03 22:59 | EKG ---
Test Reason : ROUTINE Blood Pressure : / mmHG Vent. Rate : 079 BPM Atrial Rate : 079 BPM P-R Int : 218 ms QRS Dur : 094 ms QT Int : 410 ms P-R-T Axes : 082 071 057 degrees QTc Int : 470 ms Sinus rhythm with 1st degree A-V block Nonspecific ST abnormality Abnormal ECG When compared with ECG of 20-JUL-2017 13:02, (Unconfirmed) Sinus rhythm has replaced Atrial fibrillation Vent. rate has decreased BY 53 BPM Nonspecific T wave abnormality has replaced inverted T waves in Inferior leads Confirmed by Mark WISE ([id number]) on 08/03/2017 10:59:41 PM Referred By: CARROLL Confirmed By:Mark WISE
== END 2017-07-23 12:49 | disposition home or self-care (01) | DRG 310 ==
LOC: ERS 12:43 → OBSVTOIN 14:27 → ERHOLD 14:27 → CCU 16:26 → 2NO 07-22 17:01
PROVIDERS: ADMIT Student in an Organized Health Care Education/Training Program; ATTEND Student in an Organized Health Care Education/Training Program
PROC: B24BZZ4 Ultrasonography of Heart with Aorta, Transesophageal (ICD-10-PCS; principal; 2017-07-21)
PROC: 5A2204Z Restoration of Cardiac Rhythm, Single (ICD-10-PCS; 2017-07-21)
DX: I48.0 Paroxysmal atrial fibrillation (principal); E11.9 Type 2 diabetes mellitus without complications; E78.5 Hyperlipidemia, unspecified; I10 Essential (primary) hypertension; Z79.84 Long term (current) use of oral hypoglycemic drugs; E78.00 Pure hypercholesterolemia, unspecified
CPT/HCPCS: 36415; 36416; 80053; 84484; 85025; 90471; 90682; 93005; 93010; 93312; 94760; 96365; 96366; G0008; G8978-GP-CI; G8979-GP-CI; G8980-GP-CI; J1650; Q2036

== ENCOUNTER 2018-04-17 11:00 | Inpatient (IN) | payer MEDICARE ==
[2018-04-17] MEDS ORDERED: Diltiazem 125 MG/25 ML ONE (11:22)
[2018-04-17 11:50] LABS: #Eosinphils 0.1 thou/uL (0.0-0.7); #Lymphocytes 2.8 thou/uL (1.20-3.40); #Monocytes 0.9 thou/uL (0.11-0.59); #Neutrophils 2.7 thou/uL (1.40-6.50); %Basophils 0.7 % (0.0-1.0); %Eosinophils 1.6 % (0.0-10.0); %Lymphocytes 43.1 % (21.0-51.0); %Monocytes 13.2 % (0.0-10.0); %Neutrophils 41.4 % (42.0-75.0); Hemoglobin 13.4 g/dL (12.0-16.0); Mean Corpuscular HGB CONC 33.3 g/dL (32.0-36.0); Mean Corpuscular Hemoglobin 31.4 pg (27.0-31.0); Mean Corpuscular Volume 94.1 fL (78.0-98.0); Mean Platelet Volume 7.2 fL (7.4-10.4); Platelet Count 267 thou/uL (130-400); RBC Distribution Width 13.4 % (11.5-14.5); Red Blood Cell (RBC) Count 4.27 mill/uL (4.20-5.40); White Blood Cell (WBC) Count 6.5 thou/uL (4.8-10.8)
[2018-04-17 12:10] LABS: ALT (SGPT) 11 U/L (8-55); AST (SGOT) 12 U/L (5-34); Albumin 4.2 g/dL (3.4-4.8); Alkaline Phosphatase 63 U/L (40-150); Anion Gap 15 mmol/L (10-20); BUN (Urea Nitrogen) 27 mg/dL (9.8-20.1); Bilirubin, Total 0.3 mg/dL (0.2-1.2); Calc. Creatinine Clearance 0 mL/min (70-130); Calcium 9.8 mg/dL (7.8-10.44); Carbon Dioxide 23 mmol/L (23-31); Chloride 103 mmol/L (98-107); Estimated GFR-MDRD 52; Glucose 100 mg/dL (83-110); Potassium 4.6 mmol/L (3.5-5.1); Protein, Total 7.2 g/dL (6.0-8.3); Sodium 136 mmol/L (136-145)
--- NOTE | 2018-04-17 12:10 | RAD ---
PORTABLE UPRIGHT FRONTAL CHEST: Date: 04/17/18 COMPARISON: None. HISTORY: Shortness of breath and dizziness. FINDINGS: No pneumothorax, pleural fluid, focal consolidation, or alveolar edema. Heart and mediastinal contour s unremarkable. IMPRESSION: No acute findings. POS: [facility]
--- NOTE | 2018-04-17 12:56 | PDOC.FPRHP ---
- History of Present Illness Chief Complaint: headache History of Present Illness: 78yo F with hx of afib presenting for headache. Chance night the pt checked pulse at home with BP cuff and noticed it was 130bpm. She went to sleep and tried to ignore it but was unable to and finally decided to come to ED today. Related symptoms of headache, light headedness on exertion, and some mild intermittent SOB. No recent sleep deprivation/excess etoh/caffeine Of note pt was Dx with afib back in July 2017 and was hospitalized and dishcharged after cardioversion. Pt was prescribed bisprolol BID, flecainide, and eliquis and has been compliant with meds ever since. No cp, no diaphoresis. ED Course: Dilt 10mg bolus - Allergies/Adverse Reactions Allergies Allergy/AdvReac Type Severity Reaction Status Date / Time indomethacin [From Indocin] Allergy Verified 04/17/18 14:46 Iodine and Iodide Containing Allergy Verified 04/17/18 14:46 Produc Penicillins Allergy Verified 04/17/18 14:46 shellfish derived Allergy Verified 04/17/18 14:46 Xuhdzok-Pav-Ycv Reductase Allergy Verified 04/17/18 14:46 Inhibitor - Home Medications Medication Instructions Recorded Confirmed Type Ascorbate Calcium [Vitamin C] 500 mg PO QPM 03/09/17 04/17/18 History Biotin 5,000 mcg PO QAM 03/09/17 04/17/18 History Bisoprolol Fumarate 5 mg PO BID 03/09/17 04/17/18 History Calcium Carbonate [Calcium] 600 mg PO QAM 03/09/17 04/17/18 History Cholecalciferol (Vitamin D3) 5,000 unit PO QAM 03/09/17 04/17/18 History [Vitamin D3] Cranberry Fruit Extract [Ellura] 200 mg PO QAM 03/09/17 04/17/18 History Cyanocobalamin (Vitamin B-12) 1,000 mcg SQ Q14D 03/09/17 04/17/18 History [Vitamin B12] Dexlansoprazole [Dexilant] 60 mg PO QAM 03/09/17 04/17/18 History Folic Acid 0.4 mg PO QPM 03/09/17 04/17/18 History Icosapent Ethyl [Vascepa] 1 gm PO BID 03/09/17 04/17/18 History Lactobacillus Acidophilus 1 cap PO QAM 03/09/17 04/17/18 History [Acidophilus] Losartan Potassium 50 mg PO BID 03/09/17 04/17/18 History Melatonin 10 mg PO HS 03/09/17 04/17/18 History traMADol HCl [Tramadol HCl] 1 - 2 tab PO Q8H PRN 03/09/17 04/17/18 History Apixaban [Eliquis] 5 mg PO BID #60 tab 07/23/17 04/17/18 Rx Flecainide [Tambocor] 50 mg PO Q12HR #60 tab 07/23/17 04/17/18 Rx Acetaminophen 1 - 2 tab PO Q4H PRN 04/17/18 04/17/18 History Ezetimibe [Zetia] 10 mg PO DAILY-AC 04/17/18 04/17/18 History Magnesium Citrate 500 mg PO QAM 04/17/18 04/17/18 History Sulfamethoxazole/Trimethoprim 800 mg PO PRN PRN 04/17/18 04/17/18 History [Sulfamethoxazole-Tmp Ss Tablet] Ubidecarenone [Co Q-10] 100 mg PO QPM 04/17/18 04/17/18 History Ubidecarenone [Co Q-10] 200 mg PO QAM 04/17/18 04/17/18 History chlordiazePOXIDE/Clidinium Br 2 each PO Q6H PRN 04/17/18 04/17/18 History [Chlordiazepoxide-Clidinium Cap] - History PMHx:afib, bordline DM, HLD HTN PSHx: laminectomy, appendectomy, hysterectomy, oophorectomy, R hip replacement FHx: Stroke, CAD Social: 1-2 glasses of wine/day, denies drugs and cigarettes - Review of Systems General: denies: fever/chills, fatigue Eyes: denies: eye pain, vision changes ENT: denies: nasal congestion, rhinorrhea Respiratory: reports: shortness of breath. denies: cough Cardiovascular: denies: chest pain, palpitation Gastrointestinal: denies: nausea, vomiting Skin: denies: rashes, lesions Musculoskeletal: denies: pain, tenderness Neurological: denies: numbness, syncope Psychological: denies: anxiety, depression - Vital signs BP: [141/92] HR: [90-110] RR: [18] Pox: [96]% on [ra] Wt: [83kg] - Physical Exam Constitutional: NAD, awake, alert and oriented HEENT: normocephalic and atraumatic, EOMI, grossly normal vision, grossly normal hearing Neck: supple, trachea midline Chest: no-tender to palpation, no lesions Heart: normal S1/S2, other (irregular rate) Lungs: CTAB, no respiratory distress Abdomen: soft, non-tender Musculoskeletal: normal structure, normal tone Neurological: no focal deficit, normal sensation Skin: no rash/lesions, good turgor Heme/Lymphatic: no purpura, no petechia Psychiatric: normal mood and affect, good judgment and insight FMR H&P: Results - Labs Result Diagrams: 04/17/18 11:52 04/17/18 11:13 Lab results: WBC 6.5 thou/uL (4.8-10.8) 04/17/18 11:52 Hgb 13.4 g/dL (12.0-16.0) 04/17/18 11:52 Hct 40.2 % (36.0-47.0) 04/17/18 11:52 MCV 94.1 fL (78.0-98.0) 04/17/18 11:52 Plt Count 267 thou/uL (130-400) 04/17/18 11:52 Neutrophils % 41.4 % (42.0-75.0) L 04/17/18 11:52 Sodium 136 mmol/L (136-145) 04/17/18 11:13 Potassium 4.6 mmol/L (3.5-5.1) 04/17/18 11:13 Chloride 103 mmol/L (98-107) 04/17/18 11:13 Carbon Dioxide 23 mmol/L (23-31) 04/17/18 11:13 BUN 27 mg/dL (9.8-20.1) H 04/17/18 11:13 Creatinine 1.03 mg/dL (0.6-1.1) 04/17/18 11:13 Glucose 100 mg/dL (83-110) 04/17/18 11:13 Calcium 9.8 mg/dL (7.8-10.44) 04/17/18 11:13 Total Bilirubin 0.3 mg/dL (0.2-1.2) 04/17/18 11:13 AST 12 U/L (5-34) 04/17/18 11:13 ALT 11 U/L (8-55) 04/17/18 11:13 Alkaline Phosphatase 63 U/L (40-150) 04/17/18 11:13 Serum Total Protein 7.2 g/dL (6.0-8.3) 04/17/18 11:13 Albumin 4.2 g/dL (3.4-4.8) 04/17/18 11:13 FMR H&P: A/P - Problem List (1) Atrial fibrillation with rapid ventricular response Current Visit: No Status: Acute Code(s): I48.91 - UNSPECIFIED ATRIAL FIBRILLATION (2) Borderline diabetes mellitus Current Visit: Yes Status: Acute Code(s): R73.03 - PREDIABETES (3) Hypertension Current Visit: No Status: Acute Code(s): I10 - ESSENTIAL (PRIMARY) HYPERTENSION Qualifiers: Hypertension type: essential hypertension Qualified Code(s): I10 - Essential (primary) hypertension (4) Osteoarthritis Current Visit: No Status: Acute Code(s): M19.90 - UNSPECIFIED OSTEOARTHRITIS , UNSPECIFIED SITE (5) Hyperlipidemia Current Visit: No Status: Chronic Code(s): E78.5 - HYPERLIPIDEMIA, UNSPECIFIED - Plan 78yo F with pmh of afib presenting with afib with RVR Afib with RVR A- Pt is s/p dilt bolus in ED and already HR is 90-110. Max HR recorded at home was 133. Other than headache, intermittent sob, and light headedness pt was asymptomatic. Pt has hx of needing cardioversion. P- Will continue dilt drip 5mg/hr for now - consult cards - continue home eliquis and beta landon - TSH, Mg - trend trops HTN -home meds HLD -home meds borderline DM A- pt on home januvia P- monitor blood sugars OA -MD aware urinary incontinence -diapers as needed CODE: FULL dispo: inpt, at least 2 midnights FMR H&P: Upper Level - Pertinent history 78 yo female with PMH of afib w/ RVR, HTN, HLD, urge incontinence who presented to ER with CASTRO and dizziness. Patient has history of afib with RVR episode in June 2017, at that visit she had cardioversion. Over the past few days, she has been having asymptomatic tachycardia as high as 130s. Today she began having SOB and lightheadedness. Endorses compliance with medications, exercising 3 times a week with water aerobics. Denies CP, N/V, edema. Asymptomatic right now. In ER, patient given bolus of 10mg Cardizem and started on Cardizem drip. - Pertinent findings 141/92 HR: 98-110 TEMP: 97.6 O2: 96% on RA RR: 17 GEN: NAD, AAOx3 CARD: irreg irreg, no mgr PULM: CTAB ABD: BSx4, NT/ND EXT: pulses full and equal, no cyanosis or edema Trop: <0.010 EKG: afib with RVR, rate 114 - Plan Date/Time: 04/17/18 1255 I, Reji Robledo DO, have evaluated this patient and agree with findings/plan as outlined by intern architect resident. Pertinent changes/additions are listed here. #Atrial fibrillation with RVR -rate is sometimes falling below 100, but with it being atrial fibrillation and sometimes >100 with symptoms, we will continue with Cardizem drip until better rate controlled -Dr. 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
[2018-04-17] MEDS ORDERED: Diltiazem 125 MG in Sodium Chloride 0.9% 100 ML IVPB SCH (14:28)
[2018-04-17 14:31] VITALS: BMI 27.9
[2018-04-17] MEDS ORDERED: Cyanocobalamin 1000 MCG/ML VIAL SC SCH (15:00)
[2018-04-17 15:32] LABS: Troponin I Less than 0.010 ng/mL (< 0.028)
--- NOTE | 2018-04-17 16:05 | HP ---
HISTORY OF PRESENT ILLNESS: I have reviewed the history and physical of Dr. Keven Cid, discussed the case with him. Briefly, Ms. Wilder is a very pleasant 78-year-old white female looking much younger than her stated age. She was recently diagnosed with atrial fibrillation, rapid ventricular response, back in the spring. At that time, she underwent cardioversion successfully and had no problems until the last 24 hours. She noted yesterday. She developed a headache, but no chest pain. She had no palpitations. No shortness of breath. She felt her blood pressure may be elevated, so she checked it and while checking her blood pressure, noted that her pulse was 130. She therefore presented to our ER, where she was noted to be in atrial fibrillation again with RVR rate around 130. She was started on diltiazem drip and our service was consulted. PHYSICAL EXAMINATION: VITAL SIGNS: Currently, her blood pressure is 135/84, her pulse rate is 110 to 120 and irregular. She is afebrile. Her O2 saturation is 95% on room air. GENERAL: She is very pleasant and in no distress. She denies chest pain, palpitations, syncope, or shortness of breath. EAR, NOSE, AND THROAT: No erythema or exudate. Her thyroid does not appear in large. NECK: She has no JVD. CARDIAC: Heart rhythm is irregularly irregular with rate about 120 to 130. Difficult to appreciate murmur or rub. LUNGS: Clear without rales or wheezes. There is no respiratory distress. ABDOMEN: Flat and soft without guarding, rebound, or rigidity. EXTREMITIES: She has no edema. NEUROLOGICAL: No focal deficits. LABORATORY DATA: Her CBC; white count 6500, hemoglobin 13.4, hematocrit 40.2, and MCV of 94. Chemistries; sodium is 136, potassium 4.6, chloride 103, bicarbonate 23, BUN 27, and creatinine 1.03. Her glucose is 100. Her liver enzymes are normal. Her troponins are less than 0.01 x2. Her TSH is 3.36. DIAGNOSTIC DATA: EKG shows atrial fibrillation with a rapid ventricular response of around 130. No acute ST-segment changes noted. ASSESSMENT: Atrial fibrillation with rapid ventricular response. PLAN: Admit. Continue diltiazem drip. Consult Cardiology and proceed accordingly. Job ID: [id number]
[2018-04-17] MEDS ORDERED: Flecainide 50 MG TAB PO SCH (21:00)
[2018-04-17] MEDS: Melatonin 3 MG TAB PO SCH (21:12)
[2018-04-17] MEDS: Folic Acid 1 MG TAB PO SCH (21:13)
[2018-04-17] MEDS: Ascorbic Acid 500 mg Chewable Tablet PO SCH (21:13)
[2018-04-17] MEDS: Bisoprolol Fumarate 5 MG TAB PO SCH (21:14)
[2018-04-17] MEDS: Apixaban 5 MG TAB PO SCH (21:16)
[2018-04-17] MEDS: Losartan 25 MG TAB PO SCH (21:17)
[2018-04-17] MEDS: Flecainide 50 MG TAB PO SCH (21:18)
[2018-04-18 05:43] LABS: Anion Gap 13 mmol/L (10-20); BUN (Urea Nitrogen) 20 mg/dL (9.8-20.1); Calc. Creatinine Clearance 71 mL/min (70-130); Calcium 9.4 mg/dL (7.8-10.44); Carbon Dioxide 24 mmol/L (23-31); Chloride 104 mmol/L (98-107); Estimated GFR-MDRD 66; Glucose 123 mg/dL (83-110); Potassium 4.2 mmol/L (3.5-5.1); Sodium 137 mmol/L (136-145)
--- NOTE | 2018-04-18 08:05 | PDOC.FM ---
- Subjective Subjective: pt feels well this morning. Her symptoms have resolved though she remains in afib. States Nancy wants to do a procedure of some type potentially today. no complaints or concerns at this time. no cp no palpitations, no sob no light headedness - Objective MAR Reviewed: Yes Vital Signs & Weight: Vital Signs (12 hours) Temp Pulse Resp BP Pulse Ox 04/18/18 04:20 97.8 F 89 14 112/59 L 97 04/17/18 20:30 97.9 F 110 H 17 116/56 L 98 04/17/18 20:25 98 Weight Weight 81.919 kg I&O: 04/17/18 04/18/18 04/19/18 06:59 06:59 06:59 Intake Total 380 Output Total 650 Balance -270 Result Diagrams: 04/17/18 11:52 04/18/18 04:32 Phys Exam - Physical Examination Constitutional: NAD HEENT: moist MMs, sclera anicteric Neck: no JVD, full ROM Respiratory: no wheezing, clear to auscultation bilateral Cardiovascular: no significant murmur irregular rhyrthm, HR 90s Gastrointestinal: soft, non-tender Musculoskeletal: no edema, pulses present Neurological: non-focal, normal sensation Psychiatric: normal affect, A&O x 3 Skin: no rash, normal turgor Dx/Plan (1) Atrial fibrillation with rapid ventricular response Code(s): I48.91 - UNSPECIFIED ATRIAL FIBRILLATION Status: Acute (2) Borderline diabetes mellitus Code(s): R73.03 - PREDIABETES Status: Acute (3) Hypertension Code(s): I10 - ESSENTIAL (PRIMARY) HYPERTENSION Status: Acute Qualifiers: Hypertension type: essential hypertension Qualified Code(s): I10 - Essential (primary) hypertension (4) Osteoarthritis Code(s): M19.90 - UNSPECIFIED OSTEOARTHRITIS, UNSPECIFIED SITE Status: Acute (5) Hyperlipidemia Code(s): E78.5 - HYPERLIPIDEMIA, UNSPECIFIED Status: Chronic - Plan Plan: 78yo F with pmh of afib presenting with afib with RVR Afib with RVR A- Pt symptoms have resolved, she is s/p flecainide 300mg last night and is still on dilt drip 5/hr. Pt is npo per cards and scheduled for BATSHEVA. TSH, Mg, trops wnl. P- Will continue dilt drip 5mg/hr for now - continue home eliquis and beta landon - f/u cards recs HTN -home meds HLD -home meds borderline DM A- pt on home januvia P- monitor blood sugars OA -MD aware urinary incontinence -diapers as needed CODE: FULL Addendum - Attending - Attending Attestation Date/Time: 04/18/18 0262 I personally evaluated the patient and discussed the management with Dr. Cid I agree with the History, Examination, Assessment and Plan documented above with any addition or exceptions noted below- Patient without complaints. Denies any cheest pain or palpitations. Afebrile VSS. A/P: 1) Afib with RVR- rate now controlled. Appreciate cardiology consult. Plan for BATSHEVA today and possible cardioversion. Continue current meds. 2) HTN- well controlled.
[2018-04-18] MEDS: Losartan 25 MG TAB PO SCH ×2 (08:16→21:52)
[2018-04-18] MEDS: Apixaban 5 MG TAB PO SCH ×2 (08:17→21:49)
[2018-04-18] MEDS: Calcium Carbonate 600 MG TAB PO SCH (08:17)
[2018-04-18] MEDS: Bisoprolol Fumarate 5 MG TAB PO SCH ×2 (08:18→21:51)
[2018-04-18] MEDS: Ezetimibe 10 MG TAB PO SCH (08:18)
[2018-04-18] MEDS: Flecainide 50 MG TAB PO SCH (08:18)
[2018-04-18] MEDS ORDERED: Flecainide 50 MG TAB PO SCH ×3 (08:55→09:30)
[2018-04-18] MEDS ORDERED: Cyanocobalamin 1000 MCG/ML VIAL SC SCH (09:00)
[2018-04-18] MEDS ORDERED: Biotin [Biotin] 5,000 MCG PO SCH (09:00)
[2018-04-18] MEDS ORDERED: CRANBERRY FRUIT EXTRACT 200 MG PO SCH (09:00)
[2018-04-18] MEDS ORDERED: MAGNESIUM CITRATE 500 MG PO SCH (09:00)
[2018-04-18] MEDS ORDERED: PROPOFOL 0 ML ONE (12:03)
[2018-04-18] MEDS ORDERED: Glycopyrrolate 0.2 MG/ML 5 ML SYRINGE ONE (12:03)
--- NOTE | 2018-04-18 15:03 | ECHO ---
TRANSESOPHAGEAL ECHOCARDIOGRAM: DATE OF PROCEDURE: 04/18/18 INDICATION: 78-year-old woman with paroxysmal atrial fibrillation. DESCRIPTION OF PROCEDURE: The patient was taken to the PACU. The patient was sedated by anesthesiology. A transesophageal probe was placed in the distal esophagus and stomach. Echocardiographic images were obtained. The transesophageal probe was removed. FINDINGS: 1. Normal left ventricular systolic function. 2. Biatrial enlargement. 3. Mild mitral regurgitation. 4. Mild tricuspid regurgitation. 5. No thrombus in the left atrium or left atrial appendage. 6. Atherosclerotic debris in the descending aorta. IMPRESSION: No formed thrombus in the left atrium or left atrial appendage.
--- NOTE | 2018-04-18 15:05 | OP ---
ELECTRICAL CARDIOVERSION: Date: 04/18/18 This is an 78-year-old woman with paroxysmal atrial fibrillation. The patient was sedated by anesthesia. The patient was shocked with 200 joules of synchronized electr icity. The patient converted to normal sinus rhythm. IMPRESSION: Successful electrical cardioversion.
[2018-04-18] MEDS: Floranex Packet PO SCH (16:41)
[2018-04-18] MEDS: Folic Acid 1 MG TAB PO SCH (21:49)
[2018-04-18] MEDS: Ascorbic Acid 500 mg Chewable Tablet PO SCH (21:49)
[2018-04-18] MEDS: Melatonin 3 MG TAB PO SCH (21:53)
--- NOTE | 2018-04-19 06:15 | PDOC.FM ---
- Subjective Subjective: Pt s/p cardioversion last night and in sinus rhythm overnight with 1st degree AV block. Pt remains asymptomatic and has no complaints. Reports Dr. Cruz wanted EP to see her today. no fever/chills, no cp, no palpitations, no sob - Objective MAR Reviewed: Yes Vital Signs & Weight: Vital Signs (12 hours) Temp Pulse Resp BP Pulse Ox 04/19/18 03:19 97.9 F 60 18 118/55 L 97 04/18/18 20:35 97.8 F 66 16 137/64 97 Weight Weight 81.919 kg I&O: 04/17/18 04/18/18 04/19/18 06:59 06:59 06:59 Intake Total 380 Output Total 650 Balance -270 Result Diagrams: 04/17/18 11:52 04/18/18 04:32 Phys Exam - Physical Examination Constitutional: NAD HEENT: moist MMs, sclera anicteric Neck: no JVD, supple Respiratory: no wheezing, clear to auscultation bilateral Cardiovascular: RRR, no significant murmur Gastrointestinal: soft, non-tender Musculoskeletal: no edema, pulses present Neurological: non-focal, normal sensation Psychiatric: normal affect, A&O x 3 Skin: no rash, normal turgor Dx/Plan (1) Atrial fibrillation with rapid ventricular response Code(s): I48.91 - UNSPECIFIED ATRIAL FIBRILLATION Status: Acute (2) Borderline diabetes mellitus Code(s): R73.03 - PREDIABETES Status: Acute (3) Hypertension Code(s): I10 - ESSENTIAL (PRIMARY) HYPERTENSION Status: Acute Qualifiers: Hypertension type: essential hypertension Qualified Code(s): I10 - Essential (primary) hypertension (4) Osteoarthritis Code(s): M19.90 - UNSPECIFIED OSTEOARTHRITIS, UNSPECIFIED SITE Status: Acute (5) Hyperlipidemia Code(s): E78.5 - HYPERLIPIDEMIA, UNSPECIFIED Status: Chronic - Plan Plan: 78yo F with pmh of afib presenting with afib with RVR Afib with RVR A- Pt s/p BATSHEVA and electric cardioversion. sinus rhythm with 1st degree AV block overnight. EP consult is in. P- continue home eliquis and beta landon - f/u cards recs - f/u EP recs - possible DC today HTN -home meds HLD -home meds borderline DM A- pt on home januvia P- monitor blood sugars OA -MD aware urinary incontinence -diapers as needed CODE: FULL Addendum - Attending - Attending Attestation Date/Time: 04/19/18 [id number] I personally evaluated the patient and discussed the management with Dr. Cid I agree with the History, Examination, Assessment and Plan documented above with any addition or exceptions noted below- Patient without complaints. Afebrile VSS. A/P: A-fib- s/p cardioversion; now in sinus rhythym. Will follow- up with EP as outpatient. Continue current meds and plan to d/c home this afternoon if remains stable.
[2018-04-19] MEDS: Ezetimibe 10 MG TAB PO SCH (08:22)
[2018-04-19] MEDS: Bisoprolol Fumarate 5 MG TAB PO SCH (08:22)
[2018-04-19] MEDS: Calcium Carbonate 600 MG TAB PO SCH (08:23)
[2018-04-19] MEDS: Apixaban 5 MG TAB PO SCH (08:23)
[2018-04-19] MEDS: Losartan 25 MG TAB PO SCH (08:23)
[2018-04-19] MEDS ORDERED: Flecainide 50 MG TAB PO SCH ×2 (09:00→09:30)
[2018-04-19] MEDS: Floranex Packet PO SCH (09:45)
[2018-04-19 11:26] VITALS: BP 115/55; TEMP 98.1
--- NOTE | 2018-04-20 10:44 | CON ---
DATE OF CONSULTATION: 04/19/2018 TYPE OF CONSULTATION: Electrophysiology. REFERRING PHYSICIAN: Naren Cruz MD HISTORY OF PRESENT ILLNESS: I am seeing Ms. Wilder at our [facility] Telemetry Floor as an electrophysiology consult and her problems are; 1. Paroxysmal atrial fibrillation. a. Previous suppression with low-dose flecainide, now with recurrence. b. Status postflecainide reloading and BATSHEVA-guided cardioversion, currently sinus rhythm. 2. Increased NJ, but no significant QRS increase post cardioversion. 3. CHADS-VASc score of 5 with age, gender, hypertension, diabetes, and on Eliquis for anticoagulation. 4. Normal LVEF by history and negative left heart catheterization in the past. ALLERGIES: INDOMETHACIN, IODINE, PENICILLIN, SHELLFISH, AND STATINS. SUBJECTIVE: Ms. Wilder is here due to rapid pulse and headaches started on the day of admission on the . She denied chest pain, did not pass out. She had mild lightheadedness though on exertion and some intermittent dyspnea. She came to the ER and was found to be atrial fibrillation, rates were somewhat rapid and IV diltiazem was instituted. Later, Dr. Cruz evaluated the patient and she was given reloading of flecainide, but that did not completely convert her back to normal rhythm. Eventually, a BATSHEVA-guided cardioversion was done and currently she is maintaining sinus rhythm. Hence, prolonged NJ, the flecainide was held transiently. She denies any new symptoms since the cardioversion. REVIEW OF SYSTEMS: Rest of 12-point system otherwise unremarkable. PAST MEDICAL HISTORY: As above. SOCIAL HISTORY: The patient denies smoking, EtOH, or drug abuse. FAMILY HISTORY: Noncontributory. OBJECTIVE: VITAL SIGNS: Blood pressure is 115/55, heart rate 62, respirations 16, and temperature 98.1 degrees Fahrenheit. GENERAL: Alert and oriented woman, in no apparent distress. NECK: Supple. Jugular veins not distended. CHEST: Coarse without crackles. HEART: Sounds are regular rate and rhythm. No murmur or gallop. ABDOMEN: Benign. Bowel sounds positive. EXTREMITIES: Without edema, clubbing, or cyanosis. Pulses are adequate. NEUROLOGIC: The patient is nonfocal. MUSCULOSKELETAL: No joint swelling or deformity. SKIN: Without rash. DATABASE: EKG is reviewed revealing initially atrial fibrillation and subsequently sinus rhythm is seen. First-degree AV block is noted, but no QRS prolongation is noted at 108 milliseconds. LABORATORY DATA: White cell count 6.5, hematocrit 13.4, and platelet count is 267. Sodium 137, potassium 4.2, BUN is 20, creatinine 0.83. ASSESSMENT AND PLAN: 1. Ms. Wilder is a pleasant 78-year-old woman with prior history of paroxysmal atrial fibrillation easily suppressed in the past with flecainide, but now had recurrence. a. Again, we discussed treatment options, it is reasonable to have a mild increase in the flecainide 75 mg or even 100 mg twice a day could be considered. Although , she has some NJ prolongation, it is not extreme and could be monitored. Now that the increased dose of flecainide 300 mg once a day from is washing out now it is reasonable to resume flecainde at a lower dose of 25 mg twice a day. 2. She is also on bisoprolol, which could be further lowered if necessary. NJ prolongation is seen. 3. We discussed option of a pulmonary venous isolation procedure, but for now she would like to hold off on that. If recurrence lasting, she is considering the ablation. 4. Elevated CHADS-VASc score as above. Continue oral anticoagulation 5 mg twice a day, which is reasonable. 5. We will have to see this lady back in 6 weeks or earlier as symptoms dictate. Job ID: [id number] MTDD
== END 2018-04-19 15:04 | disposition home or self-care (01) | DRG 310 ==
LOC: ERS 11:00 → 2NO 12:49
PROVIDERS: ADMIT Family Medicine; ATTEND Family Medicine
PROC: B24BZZ4 Ultrasonography of Heart with Aorta, Transesophageal (ICD-10-PCS; principal; 2018-04-18)
PROC: 5A2204Z Restoration of Cardiac Rhythm, Single (ICD-10-PCS; 2018-04-18)
DX: I48.0 Paroxysmal atrial fibrillation (principal); E78.5 Hyperlipidemia, unspecified; E78.00 Pure hypercholesterolemia, unspecified; I10 Essential (primary) hypertension; R73.03 Prediabetes; M19.90 Unspecified osteoarthritis, unspecified site; I44.0 Atrioventricular block, first degree; R32 Unspecified urinary incontinence; Z96.641 Presence of right artificial hip joint; Z90.49 Acquired absence of other specified parts of digestive tract; Z90.710 Acquired absence of both cervix and uterus; Z90.89 Acquired absence of other organs; Z98.890 Other specified postprocedural states; Z90.722 Acquired absence of ovaries, bilateral; Z88.0 Allergy status to penicillin; Z88.8 Allergy status to other drugs, medicaments and biological substances; Z91.013 Allergy to seafood; Z91.041 Radiographic dye allergy status; Z79.01 Long term (current) use of anticoagulants; Z79.899 Other long term (current) drug therapy
CPT/HCPCS: 36415; 36416; 71045; 80048; 80053; 83735; 84443; 84484; 85025; 92960; 93005; 93010; 93312; 96365; 96376; J2704; J3420; J7050

== ENCOUNTER 2018-08-03 13:37 | Observation (INO) | payer MEDICARE ==
[2018-08-03 14:16] LABS: #Eosinphils 0.1 thou/uL (0.0-0.7); #Lymphocytes 2.4 thou/uL (1.20-3.40); #Monocytes 0.9 thou/uL (0.11-0.59); #Neutrophils 5.4 thou/uL (1.40-6.50); %Basophils 0.4 % (0.0-1.0); %Eosinophils 1.6 % (0.0-10.0); %Lymphocytes 27.2 % (21.0-51.0); %Monocytes 9.9 % (0.0-10.0); %Neutrophils 60.9 % (42.0-75.0); Hemoglobin 14.6 g/dL (12.0-16.0); Mean Corpuscular Hemoglobin 31.8 pg (27.0-31.0); Mean Corpuscular Volume 99.3 fL (78.0-98.0); Mean Platelet Volume 6.8 fL (7.4-10.4); Platelet Count 267 thou/uL (130-400); RBC Distribution Width 12.6 % (11.5-14.5); Red Blood Cell (RBC) Count 4.59 mill/uL (4.20-5.40); White Blood Cell (WBC) Count 8.9 thou/uL (4.8-10.8)
--- NOTE | 2018-08-03 14:22 | RAD ---
UPRIGHT PORTABLE CHEST 1 VIEW: Date: 08/03/18 HISTORY: Atrial fibrillation. COMPARISON: 04/17/18. FINDINGS: Monitor leads overlie the chest. Evidence for hiatal hernia. Heart size within normal limits. IMPRESSION: No acute intrathoracic disease. Stable from prior study. Evidence for hiatal hernia. POS: OFF
[2018-08-03 14:38] LABS: ALT (SGPT) 24 U/L (8-55); AST (SGOT) 18 U/L (5-34); Albumin 4.5 g/dL (3.4-4.8); Alkaline Phosphatase 71 U/L (40-150); Anion Gap 17 mmol/L (10-20); BUN (Urea Nitrogen) 29 mg/dL (9.8-20.1); Bilirubin, Total 0.4 mg/dL (0.2-1.2); CK (CPK) 59 U/L (29-168); Calc. Creatinine Clearance 0 mL/min (70-130); Calcium 10.4 mg/dL (7.8-10.44); Carbon Dioxide 20 mmol/L (23-31); Chloride 104 mmol/L (98-107); Estimated GFR-MDRD 50; Globulin 3.1 g/dL (2.4-3.5); Glucose 129 mg/dL (83-110); Potassium 4.4 mmol/L (3.5-5.1); Protein, Total 7.6 g/dL (6.0-8.3); Sodium 137 mmol/L (136-145)
[2018-08-03 15:43] LABS: Bilirubin Negative (Negative); Blood, Urine Negative (Negative); Clarity CLEAR (Clear); Glucose, Urine (Dipstick) Negative (Negative); Leukocyte Negative (Negative); Nitrite Negative (Negative); Protein, Urine (Dipstick) Negative (Neg-Trace); Specific Gravity, Urine 1.023 (1.002-1.036); Urobilinogen 0.2 mg/dL (0.2-1.0)
[2018-08-03] MEDS ORDERED: Senokot S 8.6-50 MG TAB PO PRN (17:35)
[2018-08-03] MEDS ORDERED: Acetaminophen 325 MG TAB PO PRN (17:35)
[2018-08-03 17:51] LABS: Troponin I Less than 0.010 ng/mL (< 0.028)
[2018-08-03] MEDS: Sulfameth/Trimethoprim DS 800-160mg TAB PO SCH (20:42)
[2018-08-03] MEDS: Famotidine 20 MG TAB PO SCH (20:42)
[2018-08-03 20:48] VITALS: BMI 28.6
[2018-08-03 20:52] LABS: Troponin I Less than 0.010 ng/mL (< 0.028)
--- NOTE | 2018-08-04 00:24 | HP ---
PRIMARY CARE PHYSICIAN: [facility]. RN TELEHEALTH: Dr. Cruz. CHIEF COMPLAINT: Atrial fibrillation. HISTORY OF PRESENT ILLNESS: Ms. Wilder is a very pleasant 78-year-old female, who reports that she was recently started on doxycycline for UTI. Reports that last night, she felt a little bit dizzy, had a headache. She got up, took her blood pressure which was elevated for her in the 180s. Also noted that her pulse was in the 120s. She reports some dizziness and mild shortness of breath this morning, which has since resolved. She has denied any palpitations, chest pain, edema. She has had 2 episodes similar to this that were both cardioverted, last episode was around Brittney. Dr. Cruz at that time put her on some flecainide and she took one and half tablets this morning without any relief in symptoms. She reports that she did not take a dose of doxycycline this morning because she was afraid that it might be causing her symptoms. She does have a pertinent history of recurrent UTIs and they have been trying different things to help the recurrence. Per ED physician, Dr. Cruz was contacted regarding patient and he would like the patient admitted and possible cardioversion in the morning. PAST MEDICAL HISTORY: Includes atrial fibrillation, hyperlipidemia, high cholesterol, hypertension, recurrent UTIs, GERD. PAST SURGICAL HISTORY: Includes laminectomy in 2017, appendectomy, hysterectomy, oophorectomy, orthopedic surgery, right hip replacement, tonsillectomy. PSYCHIATRIC HISTORY: None. SOCIAL HISTORY: The patient reports that she does drink some alcohol every day, less than 5, has a glass of wine per day. Denies any drug use. Denies any smoking history. REVIEW OF SYSTEMS: CONSTITUTIONAL: Denies chills, fever. EYES: Denies any eye pain or vision changes. ENT: Denies rhinorrhea or sore throat. CARDIOVASCULAR: Denies any chest pain or palpitations. RESPIRATORY: Does report some shortness of breath. Denies cough. GASTROINTESTINAL: Denies any abdominal pain, nausea, vomiting, diarrhea, constipation. GENITOURINARY: Denies any dysuria or frequency. MUSCULOSKELETAL: Denies back pain, falls, injury. SKIN: Denies skin changes. NEUROLOGIC: Does report some dizziness. Does report a headache. Denies any focal weakness, mental status changes, speech changes. PHYSICAL EXAMINATION: VITAL SIGNS: Blood pressure is 115/89, pulse is 104, respirations are 19, pulse ox is 94% on room air. CONSTITUTIONAL: The patient appears nontoxic, is alert and oriented to person, place, and time. HEENT: Head is atraumatic and normocephalic. Eyes; eyelids are normal to inspection. Pupils are equally round and reactive to light. ENT: Mucous membranes are moist. Mouth exam is normal. NECK: Normal range of motion. Trachea is midline. RESPIRATORY: Chest, breath sounds are clear. No findings of respiratory distress. CARDIOVASCULAR: Rate is tachycardic. Rhythm is irregularly irregular. Heart sounds are normal. ABDOMEN: Bowel sounds are heard. No tenderness on palpation. BACK: Normal inspection. Normal range of motion. No tenderness. EXTREMITIES: Upper extremity, normal inspection, normal range of motion. Radial pulses equal bilaterally. Lower extremity; normal inspection, normal range of motion. Pedal pulses equal bilaterally. There is no edema noted. NEUROLOGIC: The patient is alert and oriented to person, place, and time. Speech is normal. SKIN: Warm, dry, normal in color. She does have some ecchymoses scattered to bilateral upper extremities. KNOWN ALLERGIES: Indomethacin, iodine, penicillins, shellfish, statins. CURRENT MEDICATIONS: As listed in the ER system; 1. Ascorbic acid 500 mg daily. 2. Bisoprolol 5 mg p.o. b.i.d. 3. Calcium 600 mg b.i.d. 4. Vitamin D 5000 units daily. 5. Vitamin B12 1000 mcg daily. 6. Dexilant 60 mg once a day. 7. Zetia once a day in the morning. 8. Folic acid 400 mcg once a day. 9. Vascepa 1 g daily. 10. Acidophilus once a day. 11. Losartan 100 mg p.o. once a day. 12. Magnesium citrate 250 mg once a day. 13. Melatonin 10 mg oral once a day in the evening. 14. Eliquis 5 mg p.o. b.i.d. 15. Flecainide 50 mg p.o. b.i.d. IMAGING DATA: EKG shows atrial fibrillation with rapid ventricular response, beats per minute 119, no ectopics, ST nonspecific abnormality. T-waves nonspecific abnormality. [place] is normal. PERTINENT LABORATORY DATA: UA negative. BNP is 684. Troponin x1 is undetectable. CK is 59. Sodium is 137, potassium is 4.4, chloride 104, carbon dioxide is 20, gap is 17, BUN is 29, creatinine is 1.06, estimated GFR is 50, glucose is 129, calcium is 10.4. White blood cell count is 8.9, hemoglobin 14.6, hematocrit is 45.6, platelet count is 267. Chest x-ray shows no acute intrathoracic disease, stable from prior study. There is evidence of a hiatal hernia. ASSESSMENT/PLAN: 1. Atrial fibrillation and rapid ventricular response. Currently, pulse has improved, is in the 100s. We will trend troponins. We will ask Cardiology to consult. Continue home medications. 2. Hypertension. We will continue home medications. 3. Hyperlipidemia. We will restart home medications. 4. DVT prophylaxis, will not be started due to patient being on Eliquis. 5. GI prophylaxis will be started. 6. Hospital course will depend on clinical findings. Job ID: [id number]
[2018-08-04 04:55] LABS: #Eosinphils 0.1 thou/uL (0.0-0.7); #Lymphocytes 2.1 thou/uL (1.20-3.40); #Monocytes 0.7 thou/uL (0.11-0.59); #Neutrophils 2.9 thou/uL (1.40-6.50); %Basophils 0.7 % (0.0-1.0); %Eosinophils 2.4 % (0.0-10.0); %Lymphocytes 36.1 % (21.0-51.0); %Monocytes 11.5 % (0.0-10.0); %Neutrophils 49.3 % (42.0-75.0); Hemoglobin 13.1 g/dL (12.0-16.0); Mean Corpuscular HGB CONC 33.8 g/dL (32.0-36.0); Mean Corpuscular Hemoglobin 33.3 pg (27.0-31.0); Mean Corpuscular Volume 98.5 fL (78.0-98.0); Mean Platelet Volume 6.6 fL (7.4-10.4); Platelet Count 227 thou/uL (130-400); RBC Distribution Width 12.5 % (11.5-14.5); Red Blood Cell (RBC) Count 3.95 mill/uL (4.20-5.40); White Blood Cell (WBC) Count 5.9 thou/uL (4.8-10.8)
[2018-08-04 05:23] LABS: ALT (SGPT) 20 U/L (8-55); AST (SGOT) 13 U/L (5-34); Albumin 3.6 g/dL (3.4-4.8); Alkaline Phosphatase 57 U/L (40-150); Anion Gap 14 mmol/L (10-20); BUN (Urea Nitrogen) 20 mg/dL (9.8-20.1); Bilirubin, Total 0.4 mg/dL (0.2-1.2); Calc. Creatinine Clearance 74 mL/min (70-130); Calcium 9.4 mg/dL (7.8-10.44); Carbon Dioxide 20 mmol/L (23-31); Chloride 107 mmol/L (98-107); Estimated GFR-MDRD 67; Globulin 2.5 g/dL (2.4-3.5); Glucose 115 mg/dL (83-110); Protein, Total 6.1 g/dL (6.0-8.3); Sodium 137 mmol/L (136-145)
[2018-08-04] MEDS ORDERED: PROPOFOL 20 ML ONE (07:55)
[2018-08-04] MEDS ORDERED: Lidocaine 1% PF 5 ML VIAL ONE ×2 (07:55→16:38)
[2018-08-04] MEDS ORDERED: Dronedarone HCl 400 MG TAB PO SCH (08:00)
[2018-08-04] MEDS ORDERED: Apixaban 5 MG TAB PO SCH (09:00)
[2018-08-04] MEDS: Sulfameth/Trimethoprim DS 800-160mg TAB PO SCH (09:36)
[2018-08-04] MEDS: Famotidine 20 MG TAB PO SCH (09:36)
[2018-08-04 12:16] VITALS: BP 130/60; TEMP 97.7
--- NOTE | 2018-08-04 14:09 | CON ---
DATE OF CONSULTATION: HISTORY OF PRESENT ILLNESS: This is an 78-year-old woman, who presents with recurrent palpitation. The patient has a long history of atrial fibrillation. She has been admitted on several occasions and undergone electrical cardioversion. The patient has been treated with flecainide. She has also been evaluated for possible ablation. She was most recently cardioverted in the March of last year. She presents once again with recurrent palpitations. The patient denies having any chest discomfort. PAST MEDICAL HISTORY: 1. Atrial fibrillation. 2. Hypertension. 3. Dyslipidemia. PAST SURGICAL HISTORY: She had a laminectomy, appendectomy, hysterectomy, oophorectomy, hip surgery, and tonsillectomy. ALLERGIES: SHE IS ALLERGIC TO INDOMETHACIN, PENICILLIN, IODINE, SHELLFISH, AND STATINS. SOCIAL HISTORY: Nonsmoker. REVIEW OF SYSTEMS: Ten-point system, otherwise unremarkable. MEDICATIONS: See nursing list. PHYSICAL EXAMINATION: GENERAL: Obese woman, in no acute distress. VITAL SIGNS: Blood pressure 120/74. NECK: No jugular venous distention. LUNGS: Clear to auscultation. HEART: Irregular rate and rhythm. Normal S1 and S2. ABDOMEN: Nondistended. EXTREMITIES: Showed trace edema. VASCULAR: Radial pulses 2+. LABORATORY DATA: Her white blood cell count 5.9, hemoglobin 13.1, hematocrit 38.9, and platelets 227. Sodium is 137, potassium 4.0, chloride 107, bicarbonate 20, BUN 20, and creatinine is 0.82. Troponin less than 0.82. Her EKG revealed rapid atrial fibrillation with nonspecific ST-T wave abnormality. IMPRESSION: 1. Recurrent paroxysmal atrial fibrillation. 2. Hypertension. 3. Dyslipidemia. 4. Obesity. This patient presents with recurrent atrial fibrillation. We recommended proceeding with BATSHEVA and electrical cardioversion. PLAN: Proceed with BATSHEVA and electrical cardioversion. Job ID: [id number]
--- NOTE | 2018-08-04 14:36 | OP ---
DATE OF PROCEDURE: 08/04/2018 PROCEDURE PERFORMED: Transesophageal echocardiogram. INDICATION: An 78-year-old woman with paroxysmal atrial fibrillation. DESCRIPTION OF PROCEDURE: The patient was taken to the PACU. The patient was sedated by Anesthesiology. A transesophageal probe was placed into the distal esophagus and stomach. Echocardiographic images were obtained. The transesophageal probe was removed. FINDINGS: 1. Normal left ventricular systolic function. 2. Marked biatrial enlargement. 3. Moderate mitral regurgitation. 4. Moderate tricuspid regurgitation. 5. Spontaneous contrast was noted in the left atrium and left atrial appendage. 6. No formed thrombus noted in the left atrium or left atrial appendage. 7. Atherosclerotic debris in the descending aorta. IMPRESSION: No formed thrombus in the left atrial appendage. Job ID: [id number]
--- NOTE | 2018-08-04 14:37 | OP ---
DATE OF PROCEDURE: 08/04/2018 PROCEDURE PERFORMED: Electrical cardioversion. INDICATION: An 78-year-old woman with paroxysmal atrial fibrillation. DESCRIPTION OF PROCEDURE: The patient was taken to the PACU. The patient was sedated by Anesthesiology. The patient was shocked with 200 joules of synchronized electricity. The patient was converted to normal sinus rhythm. IMPRESSION: Successful electrical cardioversion. Job ID: [id number]
[2018-08-04] MEDS ORDERED: PROPOFOL 200 MG/20 ML VIAL ONE (16:38)
--- NOTE | 2018-08-05 02:49 | DIS ---
DATE OF ADMISSION: 08/03/2018 DATE OF DISCHARGE: 08/04/2018 ALLERGIES: INDOMETHACIN, IODINE AND IODIDE CONTAINING PRODUCTS, PENICILLIN, SHELLFISH, AND STATINS. CHIEF COMPLAINT: Elevated heart rate, blood pressure, dizziness, and shortness of breath. FINAL DIAGNOSES: 1. Recurrent atrial fibrillation, CHADS-VASc 4, status post direct current cardioversion with Dr. Cruz to normal sinus rhythm. 2. Hypertension. 3. Hyperlipidemia. 4. Recurrent urinary tract infections. 5. Gastroesophageal reflux disease, stable. PROCEDURES PERFORMED: Transesophageal echocardiogram, direct current cardioversion with Dr. Cruz. LABORATORY RESULTS: White blood cell count 5.9, hemoglobin 13.1, hematocrit 38.9, platelets 227. Sodium 137, potassium 4.0, chloride 107, carbon dioxide 20, anion gap 14, BUN 20, creatinine 0.82, GFR 67, glucose 115. Liver function enzymes within normal limits. Troponin negative x2. BNP 684. UA was negative for UTI. IMAGING RESULTS: Transesophageal echocardiogram showed normal left ventricular systolic function, marked right atrial enlargement, moderate MR, moderate TR. No formed thrombus noted in the left atrium or left atrial appendage. Atherosclerotic debris in the aorta. Chest x-ray showed no acute intrathoracic disease stable from prior study. Evidence of hiatal hernia. CONSULTATIONS: Dr. Cruz of Cardiology. VITAL SIGNS: Blood pressure 130/60, pulse is 73, O2 saturation is 97% on room air, temperature is 97.7. HOSPITAL COURSE: Ms. Wilder is a very pleasant 78-year-old female with past medical history significant for paroxysmal atrial fibrillation, who presented to the hospital with complaints of dizziness, headache, elevated blood pressure, and mild shortness of breath since the morning of her arrival. The patient reports that the night prior to arrival, she felt dizzy and had a headache. She was recently placed on doxycycline for UTI, and thought possibly it was a reaction to that medication. She took her blood pressure however and noticed that was elevated in the 180s systolic, and her pulse was also elevated in the 120s. She had a prior episode to this back in March when she was in atrial fibrillation, so she presented to the ER for further workup and treatment. EKG on arrival did indeed show sustained atrial fibrillation. She was admitted at the behest of Dr. Cruz, to perform inpatient BATSHEVA and cardioversion. The patient underwent a BATSHEVA and cardioversion to sinus rhythm this morning. The patient was seen this afternoon and feels well. She denies any further dizziness or shortness of breath. She denies any chest pain or palpitations. PHYSICAL EXAMINATION: GENERAL: The patient is awake and alert, comfortable, sitting in bed, in no acute distress. HEENT: Atraumatic and normocephalic. Eye movements intact. Mucous membranes are moist. NECK: Supple. No lymphadenopathy. No carotid bruits. RESPIRATORY: Regular respiratory rate and pattern. Clear to auscultation bilaterally. No rhonchi, wheezes, or crackles. CV: S1 and S2. Regular rate and rhythm. No appreciable murmurs, rubs, or gallops. GI: Soft, nontender. Positive bowel sounds. Mildly obese. PERIPHERAL VASCULAR: No lower extremity pitting edema. She has +2 DP pulses bilaterally. MUSCULOSKELETAL: No joint effusion or swelling. NEUROLOGIC: Cranial nerves 2 through 12 intact. No focal deficits. SKIN: Warm and dry. No rashes or discolorations. CONDITION AT DISCHARGE: Stable. DISCHARGE MEDICATIONS: Of note, the patient's flecainide has been discontinued in favor of Multaq 400 mg b.i.d. to be taken with meals. She will continue Eliquis [address] of doxycycline, she will be placed on Bactrim DS one tablet p.o. b.i.d. for the next 5 days to complete her course. Her bisoprolol has been changed from 5 mg twice daily to 5 mg once daily. Otherwise, her medication regimen will stay the same and include the following, acetaminophen 325 mg tablet 1-2 tabs p.o. q.4 p.r.n., vitamin C and biotin supplements, calcium carbonate 600 mg tab one tab q.a.m., vitamin D3 5000 units daily, cranberry extract 200 mg capsule daily, vitamin B12 1000 mcg subcu q.14 days, Dexilant 60 mg tablet one tablet p.o. q.a.m., estradiol gel packet one pack topically as directed, Zetia 10 mg tab daily, folic acid 0.4 mg p.o. q.p.m., gabapentin 600 mg p.o. at bedtime, Vascepa 1 g p.o. b.i.d., losartan 50 mg p.o. b.i.d., melatonin 10 mg p.o. at bedtime, sitagliptin 100 mg tablet one tablet p.o. daily, CoQ10 200 mg capsule p.o. q.a.m. DISCHARGE DISPOSITION: Home. PLAN: The patient will continue her medications as described above and follow up with Dr. Cruz. He is referring her to Dr. Dyer for possible EP ablation of her atrial fibrillation. The patient will continue her course of Bactrim for her previously diagnosed UTI, however, UA here was clean. All findings and plan have been discussed with the patient to her satisfaction. Job ID: [id number]
--- NOTE | 2018-08-07 22:36 | EKG ---
Test Reason : POST A.M. CARDIOVERS Blood Pressure : / mmHG Vent. Rate : 072 BPM Atrial Rate : 072 BPM P-R Int : 254 ms QRS Dur : 090 ms QT Int : 398 ms P-R-T Axes : 088 058 064 degrees QTc Int : 435 ms Sinus rhythm with 1st degree A-V block Otherwise normal ECG When compared with ECG of 03-AUG-2018 13:41, (Unconfirmed) Sinus rhythm has replaced Atrial fibrillation Vent. rate has decreased BY 47 BPM Nonspecific T wave abnormality no longer evident in Inferior leads Nonspecific T wave abnormality no longer evident in Lateral leads Confirmed by Mark WISE ([id number]) on 08/07/2018 10:36:21 PM Referred By: [email or web address] Confirmed By:Mark WISE
== END 2018-08-04 15:49 | disposition home or self-care (01) ==
LOC: ERS 13:37 → ERHOLD 17:09 → 2SW 20:13
PROVIDERS: ADMIT Internal Medicine; ATTEND Internal Medicine
PROC: B24BZZ4 Ultrasonography of Heart with Aorta, Transesophageal (ICD-10-PCS; principal; 2018-08-04)
PROC: 5A2204Z Restoration of Cardiac Rhythm, Single (ICD-10-PCS; 2018-08-04)
DX: I48.0 Paroxysmal atrial fibrillation (principal); N39.0 Urinary tract infection, site not specified; E78.5 Hyperlipidemia, unspecified; E78.00 Pure hypercholesterolemia, unspecified; I10 Essential (primary) hypertension; K21.9 Gastro-esophageal reflux disease without esophagitis; E66.9 Obesity, unspecified; Z68.28 Body mass index [BMI] 28.0-28.9, adult; Z91.041 Radiographic dye allergy status; Z88.0 Allergy status to penicillin; Z88.8 Allergy status to other drugs, medicaments and biological substances; Z91.013 Allergy to seafood; Z98.890 Other specified postprocedural states; Z79.2 Long term (current) use of antibiotics; Z79.84 Long term (current) use of oral hypoglycemic drugs; Z79.899 Other long term (current) drug therapy
CPT/HCPCS: 71045; 80053 ×2; 81003; 82550; 83880; 84484 ×2; 85025 ×2; 87086; 92960; 93005 ×2; 93312; 96361; 96374; 97139; 99285; G0378 ×2; 36415; 93010; J2001; J2704

== ENCOUNTER 2021-05-12 11:11 | Observation (INO) | payer MEDICARE ==
[2021-05-12] MEDS ORDERED: Aspirin Chewable 81 MG TAB ONE (11:38)
[2021-05-12 11:48] LABS: #Basophils 0.1 thou/uL (0.0-0.2); #Eosinphils 0.1 thou/uL (0.0-0.7); #Lymphocytes 3.6 thou/uL (1.20-3.40); #Monocytes 1.2 thou/uL (0.11-0.59); #Neutrophils 5.1 thou/uL (1.40-6.50); %Basophils 0.9 % (0.0-1.0); %Eosinophils 1.5 % (0.0-10.0); %Lymphocytes 35.4 % (21.0-51.0); %Monocytes 11.6 % (0.0-10.0); %Neutrophils 50.6 % (42.0-75.0); Hemoglobin 16.1 g/dL (12.0-16.0); Mean Corpuscular HGB CONC 33.3 g/dL (32.0-36.0); Mean Corpuscular Hemoglobin 32.7 pg (27.0-31.0); Mean Corpuscular Volume 98.3 fL (78.0-98.0); Mean Platelet Volume 6.8 fL (7.4-10.4); Platelet Count 317 thou/uL (130-400); Red Blood Cell (RBC) Count 4.92 mill/uL (4.20-5.40); White Blood Cell (WBC) Count 10.1 thou/uL (4.8-10.8)
[2021-05-12 12:17] LABS: ALT (SGPT) 17 U/L (8-55); AST (SGOT) 15 U/L (5-34); Albumin 4.8 g/dL (3.4-4.8); Alkaline Phosphatase 63 U/L (40-110); BUN (Urea Nitrogen) 25 mg/dL (9.8-20.1); Bilirubin, Total 0.3 mg/dL (0.2-1.2); Calc. Creatinine Clearance 0 mL/min (70-130); Calcium 10.7 mg/dL (7.8-10.44); Carbon Dioxide 22 mmol/L (23-31); Chloride 102 mmol/L (98-107); Glucose 140 mg/dL (83-110); Potassium 4.9 mmol/L (3.5-5.1); Protein, Total 7.8 g/dL (5.8-8.1); Sodium 139 mmol/L (136-145)
[2021-05-12 12:27] LABS: Anion Gap 20 mmol/L (10-20)
[2021-05-12 15:11] LABS: Troponin I Less than 0.010 ng/mL (< 0.028)
[2021-05-12] MEDS ORDERED: Acetaminophen 325 MG TAB PO PRN (16:14)
[2021-05-12] MEDS ORDERED: Ondansetron ODT 4 MG TAB PO PRN (16:14)
[2021-05-12 18:15] LABS: Troponin I Less than 0.010 ng/mL (< 0.028)
[2021-05-12 20:38] LABS: SARS-CoV-2 PCR by NAA Not Detected (NotDetected)
[2021-05-12] MEDS ORDERED: Enoxaparin Sodium 80 MG/0.8 ML SYRINGE SC SCH (21:00)
[2021-05-12] MEDS ORDERED: Gabapentin 300 MG CAP PO SCH (21:00)
[2021-05-12] MEDS ORDERED: Enoxaparin Sodium 80 MG/0.8 ML SYRINGE ONE (22:00)
[2021-05-12] MEDS ORDERED: Dronedarone HCl 400 MG TAB PO SCH (22:15)
[2021-05-13 04:45] VITALS: BMI 29.5
[2021-05-13 05:35] LABS: #Basophils 0.1 thou/uL (0.0-0.2); #Eosinphils 0.2 thou/uL (0.0-0.7); #Lymphocytes 2.3 thou/uL (1.20-3.40); #Monocytes 0.8 thou/uL (0.11-0.59); #Neutrophils 2.4 thou/uL (1.40-6.50); %Basophils 1.2 % (0.0-1.0); %Eosinophils 3.7 % (0.0-10.0); %Lymphocytes 39.6 % (21.0-51.0); %Monocytes 13.9 % (0.0-10.0); %Neutrophils 41.6 % (42.0-75.0); Hemoglobin 13.5 g/dL (12.0-16.0); Mean Corpuscular HGB CONC 33.5 g/dL (32.0-36.0); Mean Corpuscular Hemoglobin 32.7 pg (27.0-31.0); Mean Corpuscular Volume 97.8 fL (78.0-98.0); Mean Platelet Volume 6.7 fL (7.4-10.4); Platelet Count 239 thou/uL (130-400); RBC Distribution Width 11.8 % (11.5-14.5); Red Blood Cell (RBC) Count 4.11 mill/uL (4.20-5.40); White Blood Cell (WBC) Count 5.7 thou/uL (4.8-10.8)
[2021-05-13 05:54] LABS: Anion Gap 15 mmol/L (10-20); BUN (Urea Nitrogen) 19 mg/dL (9.8-20.1); Calc. Creatinine Clearance 64 mL/min (70-130); Calcium 9.3 mg/dL (7.8-10.44); Carbon Dioxide 22 mmol/L (23-31); Chloride 106 mmol/L (98-107); Glucose 123 mg/dL (83-110); Sodium 139 mmol/L (136-145)
[2021-05-13] MEDS ORDERED: Dronedarone HCl 400 MG TAB PO SCH (08:00)
[2021-05-13 08:43] VITALS: BP 138/61; TEMP 97.6
== END 2021-05-13 10:00 | disposition home or self-care (01) ==
LOC: ERS 11:11 → ERHOLD 14:22 → 2NO 23:11
PROVIDERS: ADMIT Internal Medicine; ATTEND Internal Medicine
DX: I48.0 Paroxysmal atrial fibrillation (principal); M54.16 Radiculopathy, lumbar region; I10 Essential (primary) hypertension; M19.90 Unspecified osteoarthritis, unspecified site; N39.41 Urge incontinence; E11.9 Type 2 diabetes mellitus without complications; E78.5 Hyperlipidemia, unspecified; Z79.84 Long term (current) use of oral hypoglycemic drugs; Z79.899 Other long term (current) drug therapy; Z88.0 Allergy status to penicillin; Z88.8 Allergy status to other drugs, medicaments and biological substances; Z91.013 Allergy to seafood; Z91.041 Radiographic dye allergy status; Z20.822 Contact with and (suspected) exposure to COVID-19
CPT/HCPCS: 71045; 80048; 80053; 84484 ×2; 85025 ×2; 93005; 94760; 96372; 96374; 99291; G0378 ×2; U0003; U0005; 36415; J1650

== ENCOUNTER 2021-05-15 10:15 | Day surgery (SDC) | payer MEDICARE ==
[2021-05-14 16:17] VITALS: BMI 28.5
[2021-05-15] MEDS ORDERED: PROPOFOL 20 ML ONE (11:05)
[2021-05-15 11:25] LABS: INR-International Normal Ratio 1.6
[2021-05-15 11:26] LABS: PTT 33.3 sec (22.9-36.1)
== END 2021-05-15 12:21 | disposition home or self-care (01) ==
LOC: SDC 10:15
PROVIDERS: ATTEND Internal Medicine Cardiovascular Disease
PROC: 5A2204Z Restoration of Cardiac Rhythm, Single (ICD-10-PCS; principal; 2021-05-15)
PROC: B24BZZ4 Ultrasonography of Heart with Aorta, Transesophageal (ICD-10-PCS; 2021-05-15)
DX: I48.0 Paroxysmal atrial fibrillation (principal); I08.1 Rheumatic disorders of both mitral and tricuspid valves; Z79.01 Long term (current) use of anticoagulants; Z79.84 Long term (current) use of oral hypoglycemic drugs; Z79.899 Other long term (current) drug therapy; Z88.0 Allergy status to penicillin; Z88.8 Allergy status to other drugs, medicaments and biological substances; Z91.013 Allergy to seafood; Z91.041 Radiographic dye allergy status
CPT/HCPCS: 36415; 85610; 85730; 92960; 93005; 93010; 93312; J2704